=== PATIENT | male | born 1945 | race African-American/Black ===

== ENCOUNTER 2017-04-12 16:54 | Inpatient (IN) | payer MEDICARE ==
[~2017-04-12] VITALS: Ht 188 cm; Wt 155.5 kg
[2017-04-12] MEDS ORDERED: PROAIR HFA8.5 GM INH (17:47)
[2017-04-12] MEDS ORDERED: GLIPIZIDE10 MG PO (17:48)
[2017-04-12] MEDS ORDERED: VITAMIN D250000 UNIT PO (17:49)
[2017-04-12] MEDS ORDERED: ZOCOR40 MG PO (17:49)
[2017-04-12] MEDS ORDERED: MAG 6464 MG PO (17:50)
[2017-04-12] MEDS ORDERED: ISOSORBIDE MONO30 M1 PO (17:53)
[2017-04-12] MEDS ORDERED: AMBIEN10 MG PO ×2 (17:54→18:09)
[2017-04-12] MEDS ORDERED: ULTRAM50 MG PO (17:54)
[2017-04-12] MEDS ORDERED: NOVOLIN 70/30 110 ML SC ×2 (18:00)
--- NOTE | 2017-04-12 18:00 | NUR ---
PT RECEIVED TO ROOM FROM EMS. PT ABLE TO AMBULATE TO BED X2 ASSIST. PT IS ORIENTED X3. PT IS VERY LETHARGIC ONCE HE GOT TO BED. UNABLE TO PERFORM FULL HX OR ASSESSMENT DUE TO PT BEING SO LETHARGIC AND NOT ANSWERING QUESTIONS. PTS BS IS 237. ORDERS ARE IN, MED REC COMPELTED, PT ABLE TO ANSWER MINIMAL QUESTIONS. REQUESTING TO EAT. VSS EXCEPT FOR BP BEING SLIGHTLY HYPOTENSIVE AT 104/45 UNSURE FOR BASELINE. UPON ASSESSING PT CELL PHONE AT BEDSIDE WAS RINGING AND IT WAS A FAMILY FRIEND. HE STATES PT LIVES AT HOME ALONE AND CALLED HIS DAUGHTER NOT FEELING WELL AND SHE BROUGHT HIM TO [facility], I GAVE HIM THE HOSPITAL NUMBER AND SHE IS SUPPOSE TO CALL FOR AN ACCURATE HISTORY AND PTS BASELINE WHICH IS APPARENTLY NOT CONFUSION OR LETHARGY. WILL NOTIFY RENAL MAKE UP ARTIST OF PTS ARRIVAL AND LET THEM KNOW AND CONTINUE WITH ORDERS.
[2017-04-12] MEDS ORDERED: METOPROLOL TART50 MG PO (18:02)
[2017-04-12] MEDS ORDERED: ZYLOPRIM100 MG PO (18:02)
[2017-04-12] MEDS ORDERED: LASIX80 MG PO (18:03)
[2017-04-12] MEDS ORDERED: ZOCOR20 MG PO (18:03)
[2017-04-12] MEDS ORDERED: VASOTEC10 MG PO (18:07)
[2017-04-12] MEDS ORDERED: CIALIS5 MG PO (18:07)
[2017-04-12] MEDS ORDERED: JANUMET 50-5001 TAB PO (18:08)
[2017-04-12] MEDS ORDERED: NAPROXEN250 MG PO (18:08)
[2017-04-12 18:10] VITALS: BP 105/45; BMI 45.0
[2017-04-12] MEDS ORDERED: SOMA350 MG PO (18:10)
--- NOTE | 2017-04-12 18:40 | NUR ---
PAGED RENAL CADDY PER NURSING MESSAGE FOR FURTHER ORDERS. WILL AWAIT CALL BACK.
[2017-04-12 19:00] VITALS: BP 132/61
--- NOTE | 2017-04-12 19:00 | NUR ---
PTS RESPIRATIONS ARE STILL SHALLOW AND PT IS SOB. STILL VERY LETHARGIC. WILL GIVE REPORT ON PT CONDTION. STILL AWAITING CALL BACK FROM [facility].
[2017-04-12 19:01] LABS: BASOPHILS 0.2 % (0-2); EOSINOPHILS 1.8 % (0-7); HEMATOCRIT 41.2 % (42.0-54.0); IMMATURE GRANULOCYTES 0.3 % (0-5); LYMPHOCYTES 18.3 % (15-50); MCH 27.3 pg (26.0-34.0); MCHC 29.1 g/dL (31.0-37.0); MCV 93.8 fL (80.0-100.0); MEAN PLATELET VOLUME 9.7 fL (7.4-10.4); MONOCYTES 8.1 % (2-11); NEUTROPHILS 71.3 % (40-80); PLATELET COUNT 209 10x3/uL (130-400); RBC 4.39 10x6/uL (4.20-6.10); RDW 15.8 % (11.5-14.5); WBC 9.9 10x3/uL (4.8-10.8)
--- NOTE | 2017-04-12 19:45 | NUR ---
PT IN BED WITH EYES CLOSED AND CHEST RISING. PT FREQUENTLY YELLS AND MOANS LOUDLY WHILE AWAKE. COMPLAINS OF BEING COLD WITH BLANKETS PROVIDED AND AIR TEMP ADJUSTED. COMPLAINS OF BEING HUNGARY AND NOT EATEN ALL DAY. PT PROVIDED WITH SANDWICH. PT FALLING ASLEEP FREQUENTLY. NO CONCERNS MADE KNOWN. CALL LIGHT IN REACH.
[2017-04-12 19:56] LABS: CALC OSMOLALITY 309 mosm/kg (275-300); CALCIUM 7.7 mg/dL (8.5-10.1); CARBON DIOXIDE 37.6 mmol/L (21.0-32.0); CHLORIDE - SERUM 96 mmol/L (98-107); CKMB 4.5 U/L (0.0-3.6); CREATINE KINASE 390 UL (21-232); GLUCOSE 212 mg/dL (74-106); POTASSIUM - SERUM 4.1 mmol/L (3.5-5.1); PRO BNP 333 pg/mL (0-125); SODIUM 139 mmol/L (136-145); UREA NITROGEN 85 mg/dL (7-18); eGFR NON AFRICAN AMERICAN 12 mL/min (90-120)
[2017-04-12 19:58] LABS: TROPONIN-I 0.016 ng/mL (0.000-0.060)
[2017-04-12 20:39] LABS: APPEARANCE CLEAR (CLEAR); BILIRUBIN NEGATIVE (NEGATIVE); COLOR YELLOW (YELLOW); GLUCOSE NEGATIVE (NEGATIVE); KETONE NEGATIVE (NEGATIVE); NITRITE NEGATIVE (NEGATIVE); PROTEIN NEGATIVE (NEGATIVE); SPECIFIC GRAVITY 1.015 (1.005-1.020); UROBILINOGEN NORMAL (NORMAL)
[2017-04-12 20:46] LABS: CREATININE - URINE 118.6 mg/dL (30-125)
--- NOTE | 2017-04-12 23:30 | NUR ---
PT IN BED WITH EYES CLOSED AND CHEST RISING. CONTINUES TO MOAN LOUDLY AND STATES THAT HE IS COLD WITH ANOTHER BLANKET PROVIDED. NO OTHER CONCERNS NOTED. CALL LIGHT IN REACH.
[2017-04-13 01:09] LABS: CREATINE KINASE 409 UL (21-232); TROPONIN-I 0.018 ng/mL (0.000-0.060)
--- NOTE | 2017-04-13 04:55 | NUR ---
PT IN BED MOANING WITH NO CONCERNS NOTED. HOB ELEVATED. NO CONCERNS NOTED CALL LIGHT IN REACH.
[2017-04-13 06:36] LABS: BASOPHILS 0.1 % (0-2); EOSINOPHILS 1.7 % (0-7); HEMATOCRIT 38.3 % (42.0-54.0); HEMOGLOBIN 11.4 g/dL (13.5-17.5); IMMATURE GRANULOCYTES 0.2 % (0-5); LYMPHOCYTES 22.3 % (15-50); MCH 27.4 pg (26.0-34.0); MCHC 29.8 g/dL (31.0-37.0); MCV 92.1 fL (80.0-100.0); MEAN PLATELET VOLUME 9.3 fL (7.4-10.4); NEUTROPHILS 68.7 % (40-80); PLATELET COUNT 205 10x3/uL (130-400); RBC 4.16 10x6/uL (4.20-6.10); RDW 15.7 % (11.5-14.5); WBC 8.6 10x3/uL (4.8-10.8)
[2017-04-13 07:09] LABS: CALC OSMOLALITY 305 mosm/kg (275-300); CALCIUM 8.6 mg/dL (8.5-10.1); CARBON DIOXIDE 36.6 mmol/L (21.0-32.0); CHLORIDE - SERUM 96 mmol/L (98-107); CKMB 2.1 U/L (0.0-3.6); CREATINE KINASE 380 UL (21-232); CREATININE - SERUM 4.7 mg/dL (0.6-1.3); GLUCOSE 184 mg/dL (74-106); POTASSIUM - SERUM 4.5 mmol/L (3.5-5.1); SODIUM 137 mmol/L (136-145); UREA NITROGEN 88 mg/dL (7-18); eGFR NON AFRICAN AMERICAN 13 mL/min (90-120)
--- NOTE | 2017-04-13 07:15 | NUR ---
AM ROUNDS COMPLETED PT IS A&O TODAY AND INQUIRING ABOUT TAKING A SHOWER. SHIFT ASSESSMENT COMPLETED. PT HAS A R.FA PIV WITH DRSG CDI AND SWAB CAPS IN USE, FLUSHED AND ITS PATENT. WILL CHECK PTS ORDERS AND ASSIST HIM IN SHOWER AND BED CHANGE SHORTLY.
--- NOTE | 2017-04-13 09:47 | NUR ---
PT NOW FINISHED WITH SHOWER HE DID IT ALL HIMSELF BUT DID NEED ASSISTANCE GETTING DRESSED. TELEMETRY APPLIED AND PT RUNNING SINUS TACHY @111. PT BACK IN BED WITH NEW FRESH LINENS IN PLACE AND FRESH GOWN. PT VOICED THANKS AND IS RESTING QUIETLY WITH ICE WATER AT BEDSIDE AND WATCHING TV. NO CURRENT PAIN OR NEEDS AT THIS TIME. CL IN REACH, BED IN LOWEST, SIDE RAILS X2. WILL CPOC.
[2017-04-13 10:22] VITALS: BP 117/51
--- NOTE | 2017-04-13 10:22 | NUR ---
PTS ABGS RESULTED WITH CRITICAL HIGH CO2 OF 83 CALLED RESULTS TO [facility] RENAL ATTORNEY LAW CLERK AND REC'D ORDERS FOR STAT BIPAP AND CONSULT PULMONOLOGY. WILL CPOC.
--- NOTE | 2017-04-13 10:35 | NUR ---
PT NOW WEARING BIPAP AND TEACHING WAS PROVIDED. PT C/O HIS BLOOD SUGAR BEING LOW, CHECKED IT AND IT WAS 319. NO ACTION NEEDED, WILL RECHECK AND TREAT WITH SS ORDERED.
--- NOTE | 2017-04-13 11:01 | NUR ---
PTS TEMP RECORDED FEBRILE @101.3 RECHECKED FOR CONFIRMATION AND TEMP ACTUALLY 98.9. PT LEAVING FOR CT OF HEAD. WILL CTM.
[2017-04-13 11:06] VITALS: Ht 188 cm; Wt 155.5 kg
--- NOTE | 2017-04-13 11:30 | NUR ---
PT BACK FROM CT HAVING ECHO PERFORMED AT THIS TIME.
[2017-04-13 12:08] VITALS: BP 114/70
[2017-04-13 12:25] LABS: ALBUMIN 2.7 g/dL (3.4-5.0); BILIRUBIN - TOTAL 0.5 mg/dL (0.2-1.3); CALCIUM 7.8 mg/dL (8.5-10.1); CARBON DIOXIDE 36.5 mmol/L (21.0-32.0); POTASSIUM - SERUM 4.5 mmol/L (3.5-5.1)
[2017-04-13 12:34] LABS: THYROID STIMULATING HORMONE 1.68 uIU/mL (0.36-3.74)
--- NOTE | 2017-04-13 12:45 | NUR ---
BLOOD SUGAR 278. PT REC'D 6 UNITS OF SS INSULIN. PT RESTING QUIETLY IN BED WITH BIPAP IN PLACE. NO CURRENT NEEDS. WILL CPOC.
--- NOTE | 2017-04-13 13:27 | NUR ---
ADMISSION HISTORY JUST NOW COMPLETED R/T NOT BEING ENTERED ON ACTUAL ADMISSION, DID MY BEST HOWEVER PT UNABLE TO PROVIDE MOST ANSWERS AND NO FAMILY HERE OR ANSWERED ON TELEPHONE.
[2017-04-13 15:26] VITALS: BP 102/57
--- NOTE | 2017-04-13 19:38 | NUR ---
PT IN BED RESTING. EVEN UNLABORED RESPIRATIONS NOTED. BIPAP IN PLACE. WILL CONTINUE TO MONITOR.
[2017-04-13 20:00] VITALS: BP 124/64
[2017-04-14] VITALS: BP 93/50
[2017-04-14 04:00] VITALS: BP 124/105
--- NOTE | 2017-04-14 05:40 | NUR ---
LYING IN BED WITH CALL LIGHT IN REACH. WILL CONTINUE WITH PLAN OF CARE.
[2017-04-14 05:50] LABS: BASOPHILS 0.1 % (0-2); EOSINOPHILS 1.5 % (0-7); HEMATOCRIT 37.3 % (42.0-54.0); HEMOGLOBIN 11.1 g/dL (13.5-17.5); IMMATURE GRANULOCYTES 0.4 % (0-5); LYMPHOCYTES 25.8 % (15-50); MCH 27.6 pg (26.0-34.0); MCHC 29.8 g/dL (31.0-37.0); MCV 92.8 fL (80.0-100.0); MEAN PLATELET VOLUME 9.5 fL (7.4-10.4); MONOCYTES 7.9 % (2-11); NEUTROPHILS 64.3 % (40-80); PLATELET COUNT 230 10x3/uL (130-400); RBC 4.02 10x6/uL (4.20-6.10); RDW 15.7 % (11.5-14.5)
[2017-04-14 06:18] LABS: ANION GAP 9.6 mmol/L (8-16); CALCIUM 8.3 mg/dL (8.5-10.1); CARBON DIOXIDE 35.4 mmol/L (21.0-32.0); CREATININE - SERUM 5.5 mg/dL (0.6-1.3)
--- NOTE | 2017-04-14 07:45 | NUR ---
AM ROUNDS COMPLETED. INTRODUCED MYSELF TO PT PRIMARY RN FOR TODAYS SHIFT. RR NONLABORED, NO CURRENT NEEDS AT THIS TIME, WILL CHECK ORDERS AND CONTINUE WITH TODAYS PLAN OF CARE.
[2017-04-14 08:00] VITALS: BP 179/87
--- NOTE | 2017-04-14 10:11 | NUR ---
PT NOT WEARING BIPAP AND APAPRENTLY REFUSED ALL NIGHT. I EXPLAINED DISEASE PROCESS AND TALKED WITH PT AND TALKED HIM INTO WEARING IT AND NOW APPLIED IT. PT HAS NOT HAD VERY MUCH OUTPUT RECORDED AND RENAL CALLED AND ORDERED DUNN AND WILL GET IT PLACED SOON POSSIBLE. PT IS ORIENTED BUT ON/OFF ALERT AND LETHARGIC PT IS MOSTLY SLEEPY BUT WILL WAKE UP ABRUPTLY AND ASK TO EAT AND STATE HIS SUGAR IS LOW BUT EVERYTIME ITS CHECKED ITS HIGH. WILL CONTINUE TO MONITER AND WITH PLAN OF CARE.
--- NOTE | 2017-04-14 10:35 | CN ---
PATIENT NAME:ANNABELLA FONTENOT MEDICAL RECORD: [id number] : 49 LOCATION:. D.2140 ADMIT DATE: 04/12/17 ACCOUNT: [id number] CONSULTING PHYSICIAN: BELA CLEMENTS MD REFERRING PHYSICIAN: DEDRA PULIDO MD DATE OF CONSULTATION: 04/13/2017 CONSULT REQUESTING PHYSICIAN: Dr. Batista. REASON FOR CONSULTATION: Acute hypoxic hypercapnic respiratory failure. HISTORY OF PRESENT ILLNESS: Mr. Fontenot is a 71-year-old gentleman who has a history of COPD, obstructive sleep apnea. The patient was not breathing very well and not feeling well. The patient came into the ER, found out patient in pulmonary edema as well, he has csrrf-hx-lvglbth renal failure. This morning, a rapid response was called because the patient was dyspneic and ABG was done and his pH was 7.3 and the pCO2 was 82. The patient was put on BiPAP, now is feeling better. He denies any fever and chill. There are no night sweats. REVIEW OF SYSTEMS: As in history of present illness. PAST MEDICAL HISTORY: 1. Chronic kidney disease. 2. Obstructive sleep apnea. 3. Chronic obstructive pulmonary disease. 4. Current everyday smoker. 5. Coronary artery disease. 6. Diabetes mellitus type 2. 7. Hypertension. 8. History of possible TB in the past. 9. History of chronic backache. 10. History of peptic ulcer disease. 11. History of polypharmacy abuse. 12. History of gout. 13. Degenerative joint disease. PAST SURGICAL HISTORY: None significant. ALLERGIES: There is no known drug allergies. MEDICATIONS: Zample was reviewed. PERSONAL AND SOCIAL HISTORY: The patient is still everyday smoker, more than a half pack a day. He is a nondrinker. FAMILY HISTORY: Noncontributory. PHYSICAL EXAMINATION: GENERAL: Now, the patient is lying comfortably in bed. He is not in acute distress. VITAL SIGNS: The blood pressure is 102/57, pulse is 85, respirations 20, temperature 98.2, SPO2 is 96% on 1.5 liters nasal cannula. HEENT: Conjunctivae pink, sclerae nonicteric. NECK: Neck is supple, no JVD. CHEST: The chest excursion is minimal on both sides. There are bilateral CONSULT REPORT [id number] ANNABELLA FONTENOT crackles. No wheezing. HEART: Rate and rhythm regular, normal sound, no murmur. ABDOMEN: Abdomen is soft, bowel sounds present. No hepatosplenomegaly. RECTAL: Deferred. EXTREMITIES: No cyanosis, no clubbing. He has 2+ pedal edema. SKIN: The skin is warm, normal turgor. CENTRAL NERVOUS SYSTEM: The patient is awake and alert. There is no obvious cranial nerve abnormality. The gait was not tested. CHEST RADIOGRAPH: There are bilateral increased interstitial markings, infiltrates. LABORATORY DATA: CBC: WBC 8.6, hemoglobin 11.4, hematocrit 38.3, platelet count 205. Chemistry: Sodium 137, potassium 4.5, BUN is 88, creatinine is 5. ABG: The pH is 7.30, pCO2 is 82, pO2 is 50, bicarbonate 40.5. IMPRESSION: 1. Acute hypoxic hypercapnic respiratory failure. 2. Respiratory acidosis secondary to #1. 3. Pulmonary edema, most likely secondary to fluid overload with associated kidney failure. 4. Acute exacerbation of chronic obstructive pulmonary disease, most likely secondary to pulmonary edema. Doubt infectious cause. 5. Obstructive sleep apnea. The patient is noncompliant. 6. Lixkl-mi-oupjtbx renal failure. 7. Diabetes mellitus type 2. 8. Morbid obesity. RECOMMENDATION: 1. BiPAP at nighttime and during the day as required. 2. Supplemental oxygen. 3. Agree with the diuresis. 4. Start him with albuterol/ipratropium nebulizer. 5. Brovana, budesonide nebulizer. 6. Follow up labs and chest radiograph. Dr. Batista, thank you for involving me in the care of Mr. Fontenot. TRANSINT:[id number] Voice Confirmation ID: [id number] DOCUMENT ID: [id number] BELA CLEMENTS MD at 1035 CC: SERGEY BATISTA MD [id number] DICTATION DATE: 04/13/17 1603 MARKETING OPERATIONS INTERN: 04/13/17 1654 ADM IN [place] [id number] [place] [address]
--- NOTE | 2017-04-14 11:10 | NUR ---
16FR DUNN INSERTED USING STERILE TECHNIQUE. CLEAR YELLOW URINE 500ML IMMEDIATE RETURN. STAT LOCK SECURED TO R.INNER THIGH AND BAG DRAINING TO GRAVITY. PT HAS STRONG FOUL ODOR FROM BODY FOLDS BUT REFUSED BATH AND STATES "I HAD ONE THIS MORNING" WILL TRY TO ENCOURAGE AGAIN SHORTLY.
[2017-04-14 12:00] VITALS: BP 125/64
--- NOTE | 2017-04-14 12:34 | NUR ---
FSBS 257 PT REC'D 6 UNITS PER SS INSULIN. PT SITTING UP IN BEDSIDE CHAIR RESTING AND DENIES ANY FURTHER NEEDS AT THIS TIME. CL IN REACH. WILL CPOC.
--- NOTE | 2017-04-14 14:23 | NUR ---
CALLED [facility] IN [place], [place] FOR AN ACCURATE HX ON PT AND THEY DID NOT ANSWER. VOICEMAIL WAS LEFT. WILL CTM.
[2017-04-14 18:02] VITALS: BP 147/81
--- NOTE | 2017-04-14 18:44 | NUR ---
PT C/O DUNN HURTING AND SAYS HE WILL RIP IT OUT. PT WILL NOT USE CL AND CONSISTENTLY IS CLIMBING OOB AND HAS MANANGED TO PULL ON HIS CATHTER TUBING TO WHERE STAT LOCK IS NOT SECURING TUBING. EXPLAINED WHY IT WAS PAINFUL TO PT AND REINFORCED STAT LOCK AND SECURED TUBING. ASSISTED PT UP IN BED AND ENCOURAGED HIM TO CALL FOR ANY NEEDED ASSISTANCE OOB AND NOT TO GET UP ON HIS OWN HIS GAIT IS NOT STABLE AND HE TENDS TO PULL ON STUFF OR JERK IT TO MISPLACE. PT STILL VERY LETHARGIC ON/OFF AND CONSTANTLY MESSING WITH BIPAP AND HASNT WORN IT TODAY EXCEPT MAYBE 4 HOURS COMBINED. PT INSISTING ON BEING DISCHARGED EXPLAINED PTS DISEASE PROCESS AGAIN AND REMINDED HIM HOW IMPORTANT IT IS TO WEAR HIS BIPAP. PT VERBALIZED UNDERSTANDING AND ALLOWED ME TO PUT IT BACK ON WILL PASS ON TO NIGHTSHIFT AND HOPEFULLY PT WILL BE COMPLIANT. BUILT IN BED ALARM TURNED ON, BED IN LOWEST, SIDE RAILS X2. NO FURTHER NEEDS AT THIS TIME.
--- NOTE | 2017-04-14 19:33 | NUR ---
PT ASLEEP. BIPAP ON. RESPIRATIONS EVEN AND UNLABORED. PT SHIVERING. AROUSED TO VERBAL STIMULI. SAYS HE IS COLD. PUT A BLANKET ON PT. PT BED LOW AND CALL LIGHT IN REACH. NO S/S OF DISTRESS. WILL CPOC
[2017-04-14 20:00] VITALS: BP 136/69
[2017-04-15] VITALS: BP 148/67
--- NOTE | 2017-04-15 01:03 | NUR ---
PT FSBS 263 6 UNITS OF HUMALOG GIVEN IN ABD. PT SITTING ON SIDE OF BED AT THIS TIME. TOOK BIPAP OFF. NC 3L ON. PT ASKS FOR GRAMCRACKERS A SNACK WITH INSULIN. WILL GIVE PT THE SNACK AND PLACE BIPAP BACK ON WHEN LAYS BACK IN BED. PT DENIES ANY OTHER NEEDS. NO S/S OF DISTRESS. WILL CPOC
[2017-04-15 04:00] VITALS: BP 114/58
--- NOTE | 2017-04-15 05:15 | NUR ---
PT TOOK OFF BIPAP TO GET SOME WATER. PT DRANK A CUP OF WATER AND THAN LET ME PUT BIPAP BACK ON. PT HAS BEEN IN AGREEMENT OF KEEPING THE BIPAP ON. ALTHOUGH HE HAS TAKEN OFF THE BIPAP SEVERAL TIMES AND SET ON SIDE OF BED 15-20 MIN AT A TIME 2-3 TIMES. PT HAS PUT BIPAP BACK ON WITHOUT DISAGREEMENT. PT NOW C/O PAIN IN LEG. WILL CHECK FOR PRN PAIN MED AVALIBLE. PT DENIES ANY OTHER NEEDS. NO S/S OF DISTRESS. WILL CPOC
[2017-04-15 06:29] LABS: BASOPHILS 0.1 % (0-2); EOSINOPHILS 1.7 % (0-7); HEMATOCRIT 37.8 % (42.0-54.0); HEMOGLOBIN 11.1 g/dL (13.5-17.5); IMMATURE GRANULOCYTES 0.4 % (0-5); LYMPHOCYTES 19.7 % (15-50); MCH 27.1 pg (26.0-34.0); MCHC 29.4 g/dL (31.0-37.0); MCV 92.4 fL (80.0-100.0); MEAN PLATELET VOLUME 9.2 fL (7.4-10.4); NEUTROPHILS 67.1 % (40-80); PLATELET COUNT 218 10x3/uL (130-400); RBC 4.09 10x6/uL (4.20-6.10); RDW 15.6 % (11.5-14.5); WBC 8.1 10x3/uL (4.8-10.8)
[2017-04-15 06:38] LABS: ANION GAP 10.9 mmol/L (8-16); CALCIUM 8.2 mg/dL (8.5-10.1); CARBON DIOXIDE 35.2 mmol/L (21.0-32.0); CREATININE - SERUM 4.6 mg/dL (0.6-1.3); POTASSIUM - SERUM 4.1 mmol/L (3.5-5.1)
--- NOTE | 2017-04-15 07:15 | NUR ---
RECIEVED REPORT ON PATIENT, PATIENT IS ALERT AT THIS TIME. PATIENT IS ON BIPAP WITH NAD NOTED AT THIS TIME. PATIENT IS SR ON MONITOR WITH A RATE OF 105. PATIENT HAS A R FA IV THAT IS SL AT THIS TIME. PATIENT C/O PAIN IN LEGS 6/10 AT THIS TIME, NOT TIME FOR PAIN MEDICATION. WILL TALK WITH DENIES ANY OTHER NEEDS. WILL CONT TO MONITOR. CPOC
[2017-04-15 08:16] VITALS: BP 165/84
--- NOTE | 2017-04-15 09:30 | NUR ---
MORNING MEDICATIONS GIVEN, NO ISSUES. PATIENT DENIES ANY NEEDS. BED LOW AND LOCKED. CPOC
[2017-04-15 11:23] VITALS: BP 127/67
--- NOTE | 2017-04-15 11:45 | NUR ---
PATIENT SITTING ON SIDE OF BED EATING LUNCH, DENIES ANY NEEDS AT THIS TIME. CPOC
--- NOTE | 2017-04-15 12:30 | NUR ---
TRAMADOL GIVEN FOR PAIN IN RIGHT LEG. DENIES ANY OTHER NEEDS AT THIS TIME. CPOC
--- NOTE | 2017-04-15 14:31 | NUR ---
PATIENT SITTING ON SIDE OF BED, STATES STILL HAVING PAIN IN RIGHT LEG. NOT DUE FOR PAIN MEDICATION, LEGS ELEVATED. WILL GIVE WHEN DUE. CPOC
--- NOTE | 2017-04-15 14:52 | NUR ---
WENT IN TO ASK PATIENT IF HE WOULD LIKE SOME TYLENOL FOR HIS PAIN AND PATIENT IS RESTING, WILL LET PATIENT REST. CPOC
[2017-04-15 15:46] VITALS: BP 124/80
--- NOTE | 2017-04-15 16:15 | NUR ---
PATIENT RESTING, AROUSES TO VOICE, DENIES ANY NEEDS. FAMILY AT BEDSIDE. CPOC
--- NOTE | 2017-04-15 18:06 | NUR ---
FSBS 333, 8 UNITS OF HUMALOG GIVEN. CPOC
--- NOTE | 2017-04-15 18:09 | NUR ---
DR FERRARI NOTIFIED OF CONSULT. CPOC
--- NOTE | 2017-04-15 18:38 | NUR ---
PATIENT RESTING AT THIS TIME, NAD NOTED. AROUSES TO VOICE, DENIES ANY NEEDS. CPOC
--- NOTE | 2017-04-15 19:20 | NUR ---
PT RESTING IN BED. BIPAP ON. RESPIRATIONS EVEN AND UNLABORED. PT DENIES ANY NEEDS. NO S/S OF DISTRESS. BED LOW AND CALL LIGHT IN REACH. WILL CPOC
[2017-04-15 20:00] VITALS: BP 148/78
--- NOTE | 2017-04-15 21:45 | NUR ---
PT IS FSBS Q6. HAS AN ORDER FOR HUMOLIG AT 0000. WILL GIVE NOVOLIN AT THAT TIME. PT ON BIPAP. RESPIRATIONS EVEN AND UNLABORED. SITTING UP TO TAKE MEDS. NO NEEDS. NO S/S OF DISTRESS. WILL CPOC
--- NOTE | 2017-04-15 23:37 | NUR ---
PT FSBS WAS 258. NOVOLIN WAS GIVEN ORDERED. HUMOLOG GIVEN 6 UNITS PER S/S. PT UP ON SOB TO EAT A SNACK. NC ON. PT UP FOR 10 MINS THAN ASSISTED PT BACK INTO BED. PUT BIPAP BACK ON. PT DENIES ANY NEEDS. NO S/S OF DISTRESS. BED LOW AND CALL LIGHT IN REACH. WILL CPOC
[2017-04-16] VITALS: BP 118/867
--- NOTE | 2017-04-16 03:20 | NUR ---
PT ASLEEP. RESP. EVEN AND UNLABORED. BIPAP ON STATES RR ARE 22. PT HAS NO S/S OF DISTRESS. CALL LIGHT IN REACH. WILL CPOC
[2017-04-16 05:14] LABS: BASOPHILS 0.1 % (0-2); EOSINOPHILS 2.1 % (0-7); IMMATURE GRANULOCYTES 0.1 % (0-5); LYMPHOCYTES 24.4 % (15-50); MCHC 29.7 g/dL (31.0-37.0); MCV 90.7 fL (80.0-100.0); MEAN PLATELET VOLUME 9.5 fL (7.4-10.4); MONOCYTES 9.4 % (2-11); NEUTROPHILS 63.9 % (40-80); PLATELET COUNT 228 10x3/uL (130-400); RBC 4.08 10x6/uL (4.20-6.10); RDW 15.4 % (11.5-14.5); WBC 7.5 10x3/uL (4.8-10.8)
[2017-04-16 05:38] LABS: ANION GAP 10.1 mmol/L (8-16); CALCIUM 8.4 mg/dL (8.5-10.1); CARBON DIOXIDE 38.4 mmol/L (21.0-32.0); CREATININE - SERUM 4.2 mg/dL (0.6-1.3); MAGNESIUM - SERUM 2.3 mg/dL (1.8-2.4); POTASSIUM - SERUM 3.5 mmol/L (3.5-5.1)
--- NOTE | 2017-04-16 06:45 | NUR ---
PT SITTING ON SIDE OF BED EATING SNACK HAS ON 2L OF NC AT THIS TIME. WILL PUT BIPAP BACK ON WHEN LAYS DOWN. PT DENIES ANY NEEDS. NO S/S OF DISTRESS. WILL CPOC
--- NOTE | 2017-04-16 07:30 | NUR ---
RECEIVED REPORT. ASSUMED CARE OF PATIENT. PATIENT SITTING TO SIDE OF BED. CALL LIGHT WITHIN REACH. DUNN CATHETER PATENT. BLOOD TINGED PINK URINE NOTED TO DRAIN BAG. RESP EVEN AND UNLABORED. DENIES NEEDS. NO DISTRESS.
[2017-04-16 08:00] VITALS: BP 146/94
--- NOTE | 2017-04-16 09:37 | NUR ---
MEDICATED FOR PAIN AT THIS TIME. NO DISTRESS.
--- NOTE | 2017-04-16 11:44 | NUR ---
FSBS 274. 6 UNITS HUMALOG ADMINISTERED PER SLIDING SCALE AT THIS TIME. NO DISTRESS.
[2017-04-16 12:00] VITALS: BP 133/73
[2017-04-16 16:00] VITALS: BP 123/61
--- NOTE | 2017-04-16 17:13 | NUR ---
MEDICATED FOR PAIN AT THIS TIME. NO DISTRESS.
--- NOTE | 2017-04-16 18:04 | NUR ---
FSBS 292. 6 UNITS HUMALOG ADMINISTERED PER SLIDING SCALE. NO DISTRESS.
--- NOTE | 2017-04-16 19:31 | NUR ---
RECEIVED REPORT, WILL ASSUME CARE OF PT, SITTING ON SIDE OF BED, ASKING FOR TV CHANNEL TO BE CHANGE TO 9, DENIES ANY OTHER NEEDS, CALL LIGHT IN REACH, WILL CONTINUE PLAN OF CARE
[2017-04-16 20:00] VITALS: BP 136/76
--- NOTE | 2017-04-16 21:10 | NUR ---
[id number] UNITS ALIYAH
--- NOTE | 2017-04-16 21:16 | NUR ---
PT PLACED ON BI PAP
[2017-04-17] VITALS: BP 129/70
[2017-04-17 04:00] VITALS: BP 122/76
[2017-04-17 06:15] LABS: BASOPHILS 0.3 % (0-2); EOSINOPHILS 2.2 % (0-7); IMMATURE GRANULOCYTES 0.3 % (0-5); LYMPHOCYTES 28.3 % (15-50); MCH 26.8 pg (26.0-34.0); MCHC 29.7 g/dL (31.0-37.0); MEAN PLATELET VOLUME 9.4 fL (7.4-10.4); MONOCYTES 10.8 % (2-11); NEUTROPHILS 58.1 % (40-80); PLATELET COUNT 226 10x3/uL (130-400); RBC 4.11 10x6/uL (4.20-6.10); RDW 15.3 % (11.5-14.5); WBC 7.8 10x3/uL (4.8-10.8)
[2017-04-17 06:28] LABS: ANION GAP 11.2 mmol/L (8-16); CALCIUM 8.4 mg/dL (8.5-10.1); CARBON DIOXIDE 36.4 mmol/L (21.0-32.0); POTASSIUM - SERUM 3.6 mmol/L (3.5-5.1)
--- NOTE | 2017-04-17 07:50 | NUR ---
ASSESSMENT DONE. DENIES NEEDS.
[2017-04-17 08:00] VITALS: BP 133/83
--- NOTE | 2017-04-17 10:01 | NUR ---
RESTS IN BED WITH CALL LIGHT IN REACH. NO NEEDS VOICED. DUNN INTACT. WILL CONT. PLAN OF CARE.
[2017-04-17 12:00] VITALS: BP 122/71
--- NOTE | 2017-04-17 13:58 | NUR ---
Nutrition follow-up: Diet: Renal ADA PO intake 100% of meals Labs reviewed +BM Wt: 341# PO intake good at this time. RDN following.
[2017-04-17 16:00] VITALS: BP 126/68
--- NOTE | 2017-04-17 16:40 | NUR ---
WITHOUT CHANGES OR DISTRESS NOTED AT THIS TIME. DENIES NEEDS.
--- NOTE | 2017-04-17 19:46 | NUR ---
ASSESSMENT COMPLETE, A&O, RESPERATIONS EVEN ON O2 AT 2 LITER VIA NC. IV TO RIGHT FOOREARM SL, SITE CLEAN AND DRY. DUNN DRAINING TO GRAVITY, BED LOW, CL IN REACH.
--- NOTE | 2017-04-17 21:43 | NUR ---
HS MEDS GIVEN WITH FRESH ICE WATER. BS 330, COVERED PER S/S. ULTRAM 1 TAB GIVEN FOR C/O PAIN. RATES PAIN AT A 5 ON PAIN SCALE.
[2017-04-17 22:18] VITALS: BP 157/74
--- NOTE | 2017-04-17 23:02 | NUR ---
PLASTIC BOAT BUFFER AT BED SIDE, PT UP IN SHOWER, LINEN CHANGE COMPLETE.
[2017-04-18 02:50] VITALS: BP 122/78
--- NOTE | 2017-04-18 03:36 | NUR ---
RESTING WITH EYES CLOSED, RESPERATIONS EVEN, NO S/S DISTRESS NOTED.
[2017-04-18 05:35] VITALS: BP 121/73
[2017-04-18 05:37] LABS: BASOPHILS 0.1 % (0-2); EOSINOPHILS 2.5 % (0-7); HEMATOCRIT 36.3 % (42.0-54.0); HEMOGLOBIN 11.1 g/dL (13.5-17.5); IMMATURE GRANULOCYTES 0.3 % (0-5); LYMPHOCYTES 17.3 % (15-50); MCH 27.1 pg (26.0-34.0); MCHC 30.6 g/dL (31.0-37.0); MCV 88.8 fL (80.0-100.0); MEAN PLATELET VOLUME 9.5 fL (7.4-10.4); MONOCYTES 11.9 % (2-11); NEUTROPHILS 67.9 % (40-80); PLATELET COUNT 214 10x3/uL (130-400); RBC 4.09 10x6/uL (4.20-6.10); RDW 15.1 % (11.5-14.5); WBC 7.3 10x3/uL (4.8-10.8)
[2017-04-18 05:55] LABS: CALCIUM 8.9 mg/dL (8.5-10.1); CARBON DIOXIDE 37.4 mmol/L (21.0-32.0); CREATININE - SERUM 3.6 mg/dL (0.6-1.3); MAGNESIUM - SERUM 1.9 mg/dL (1.8-2.4); PHOSPHOROUS 4.5 mg/dL (2.5-4.9); POTASSIUM - SERUM 3.4 mmol/L (3.5-5.1)
--- NOTE | 2017-04-18 08:12 | NUR ---
AM ROUNDS - PT IN BED AND APPEARS TO BE SLEEPING WITH EQUALA ND NON LABORED BREATHING AT THIS TIME. PT DOES HAVE BIPAP ON. MONITOR SHOWING SR, HR 97. IV TO RIGTH FA, SL. BED AT LOWEST POSITION. CALL CHRISTIANSEN IN USE/REACH. SIDE RAILS UP X2. WILL CONTINUE TO MONITOR
[2017-04-18 08:32] VITALS: BP 153/88
[2017-04-18 10:19] LABS: HEPATITIS C ANTIBODY <0.1 (0.0-0.9)
[2017-04-18 12:15] LABS: SPE - A/G RATIO 0.9 (0.7-1.7); SPE - ALBUMIN 2.9 g/dL (2.9-4.4); SPE - ALPHA-1 GLOBULIN 0.2 g/dL (0.0-0.4); SPE - ALPHA-2 GLOBULIN 0.8 g/dL (0.4-1.0); SPE - GAMMA GLOBULIN 1.1 g/dL (0.4-1.8); SPE - M-SPIKE 0.1 g/dL (Not Observed)
[2017-04-18 12:34] VITALS: BP 133/68
[2017-04-18 16:31] VITALS: BP 155/86
--- NOTE | 2017-04-18 17:50 | NUR ---
PT IN BED AND NO NEEDS AT THIS TIME. WILL CONTINUE TO MONITOR
[2017-04-18 20:00] VITALS: BP 138/81
[2017-04-19 04:00] VITALS: BP 113/74
--- NOTE | 2017-04-19 05:28 | NUR ---
PT AWAKE, ALERT, HAS BEEN ON HIS CALL LIGHT MULTIPLE TIMES THIS SHIFT, ASKING TO BE D/C'D PER GEOSCIENCES FACULTY MEMBER. NO NEEDS AT THIS TIME. CONTINUE TO MONITOR CLOSELY.
[2017-04-19 06:15] LABS: BASOPHILS 0.1 % (0-2); EOSINOPHILS 2.6 % (0-7); HEMATOCRIT 36.7 % (42.0-54.0); HEMOGLOBIN 11.4 g/dL (13.5-17.5); IMMATURE GRANULOCYTES 0.3 % (0-5); LYMPHOCYTES 19.4 % (15-50); MCH 27.6 pg (26.0-34.0); MCHC 31.1 g/dL (31.0-37.0); MCV 88.9 fL (80.0-100.0); MEAN PLATELET VOLUME 9.7 fL (7.4-10.4); MONOCYTES 8.7 % (2-11); NEUTROPHILS 68.9 % (40-80); PLATELET COUNT 244 10x3/uL (130-400); RBC 4.13 10x6/uL (4.20-6.10); RDW 15.1 % (11.5-14.5); WBC 7.7 10x3/uL (4.8-10.8)
[2017-04-19 06:36] LABS: ANION GAP 7.9 mmol/L (8-16); CALCIUM 9.2 mg/dL (8.5-10.1); CARBON DIOXIDE 36.7 mmol/L (21.0-32.0); CREATININE - SERUM 3.3 mg/dL (0.6-1.3); POTASSIUM - SERUM 3.6 mmol/L (3.5-5.1)
[2017-04-19 06:38] LABS: PHOSPHOROUS 3.2 mg/dL (2.5-4.9)
[2017-04-19 08:00] VITALS: BP 130/67
--- NOTE | 2017-04-19 08:34 | NUR ---
AM ROUNDS - PT IS IN BED AND APPEARS TO BE SLEEPING AT THIS TIME. MONITOR SHOWING ST, HR 140. DUNN DRAINING YELLOW IN COLOR. 2L O2 VIA NC. IV TO RIGHT FA, SL. BED AT LOWEST POSITION. CALL CHRISTIANSEN IN USE/REACH. SIDE RAILS UP X2. WILL CONTINUE TO MONITOR
--- NOTE | 2017-04-19 09:15 | NUR ---
ANSWERED EMERGENCY CALL LIGHT IN ROOM. WAS SITTING ON TOILET. ASKED FOR HELP CLEANING UP AFTER BM. CLEANED RECTAL/BUTTOCKS WITH SOAP AND WARM WATER. SOFT BROWN STOOL NOTED. DUNN CATHETER PRESENT WITH BLOOD TINGED URINE NOTED. DESIRES TO SIT IN CHAIR. AMBULATED TO CHAIR. ELEVATED LOWER EXTREMETIES ON PILLOWS, UNABLE TO ELEVATED ON SECONDARY CHAIR. O2 CANNULA REPLACED IN NARES, CALL LIGHT PLACED IN REACH. INSTRUCTED TO CALL FOR ASSISTANCE WHEN READY TO GET BACK IN BED. VERBALIZED UNDERSTANDING. CLEAN LINENS PLACED ON BED. PRIMARY NURSE LEONIDAS Zaragoza RN, NOTIFIED OF ACTIONS FYI.
--- NOTE | 2017-04-19 10:12 | NUR ---
REQUESTED ASSISTANCE BACK TO BED. ITEMS GIVEN FOR BEDSIDE BATH. PT WASHED FACE, FRONT AND GROIN AREA. BACK WASHED AND LOTION APPLIED. ITEMS GIVEN FOR ORAL CARE. NEW STATLOCK APPLIED TO ATTACH DUNN TO LEG. TOLERATED WELL. RETURNED TO BED, HIGHFOWLERS POSITION, NASAL CANNULA IN PLACE AND FLOW SET AT 2 L. SIDERAILS UP X 2. CALL LIGHT IN REACH. FRESH WATER GIVEN. SAYS HE WANTS TO GO HOME. WANTS TO TALK TO DAUGHTER AND ASKED ABOUT "THOSE PAPERS I CAN SIGN TO GO HOME". INFORMED PRIMARY RN, LEONIDAS Zaragoza OF ABOVE INFORMATION. Ashlyn CHAVIRA, [facility] AUTOMOTIVE SERVICE TECHNICIAN.
--- NOTE | 2017-04-19 10:59 | NUR ---
WALK TEST: PT HAS A DUNN AND UNABLE TO WALK AT THIS TIME. AT REST ON ROOM AIR PT HAD A ABG DONE AND PAO2 WAS 48 WITH SAT AT 85%.
[2017-04-19] MEDS ORDERED: HUMULIN 70100 UNIT/1 SC (11:24)
[2017-04-19] MEDS ORDERED: BUMEX2 MG PO (11:27)
[2017-04-19 11:51] VITALS: BP 147/93
--- NOTE | 2017-04-19 12:01 | NUR ---
D/C DUNN. TOOK OUT 9CC FLUID FROM DUNN BULB. TOOK DUNN OUT. PT STATES HE HAS TO URINATE RIGHT AFTER D/C OF DUNN. INSTRUCTED PT TO USE THE URINAL AND SAVE IT SO WE CAN MONITOR AMOUNT OF OUTPUT. URINE IN DUNN BAG WAS DARK IN COLOR. 200CC IN BAG. WILL CONTINUE TO MONITOR
--- NOTE | 2017-04-19 16:23 | NUR ---
Patient Name: RAMONA LAMB Admission Status: Urgent Accout number: [id number] Admission Date: 04-14-2017 : 06-18-1964 Admission Diagnosis:PNEUMONIA, UNSPECIFIED ORGANISM Attending: NEGAR TORRES Current LOS: 5 Anticipated DC Date: 04-19-2017 Planned Disposition: Home Primary Insurance: [facility] Discharge Planning Comments: * Is the patient Alert and Oriented? Yes 0 * How many steps to enter\exit or inside your home? ELEVATOR 0 * PCP DR. HUDSON 0 * Pharmacy [facility] ON [address] 0 * Preadmission Environment Home with Family 0 * ADLs Independent 0 * Equipment CPAP 0 * Other Equipment [facility] - MEDICAL EQUIPMENT PROVIDER 0 * List name and contact numbers for known caregivers / representatives who currently or will assist patient after discharge: WES GUILLORY, AUNT, 0 * Community resources currently utilized None 0 * Please name any agencies selected above. NONE 0 * Additional services required to return to the preadmission environment? No 0 * Can the patient safely return to the preadmission environment? Yes 0 * Has this patient been hospitalized within the prior 30 days at any hospital? No 0 CM RECEIVED ORDER FOR OXYGEN TESTING AND NEBULIZER. CM MET WITH PT IN ROOM TO DISCUSS DISCHARGE PLANNING AND NEEDS. PT REPORTS LIVING AT HOME INDEPENDENTLY WITH HER BOYFRIEND. PT HAS CPAP FROM [facility]. PT HAS NO OUTSIDE SERVICES ASSISTING IN THE HOME. PT REPORTS CM DISCUSSED AVAILABILITY OF HOME HEALTH, REHAB SERVICES AND MEDICAL EQUIPMENT. PT DENIES DISCHARGE NEEDS OTHER THAN A NEBULIZER. PT WANTS TO PICK IT UP FROM [facility]. PT REPORTS HER STEP SON IS HERE TO TAKE SHE AND HER BOYFRIEND HOME TODAY. IMPORTANT MESSAGE FROM MEDICARE PROVIDED AND EXPLAINED. CM CALLED [facility], SPOKE TO AIXA WHO WILL PROCESS ORDER FOR PATIENT SAWMILL WORKER TODAY. CM FAXED REFERRAL TO [facility] AT [phone]. Rn Surgical: Miguel Patton
--- NOTE | 2017-04-19 17:22 | NUR ---
D/C - IV TO RIGHT FA D/C, CATH TIP INTACT. 2X2 DRESSING APPLIED AND SECURED WITH TAPE. PT TOLERATED WELL. PT WAS IN A KRAUS TO LEAVE AND REFUSSED HIS FLU SHOT. MONITOR D/C AND RETURNED TO LUGGAGE REPAIRER. PT WAS INSTRUCTED THAT HIS HOME O2 WAS NOT AT HOME AND HIS EQUIPMENT WOULD NOT BE AT HIS HOME FOR 2 DAYS. PT INSISTED THAT HE GO HOME. [employer] [facility] WAS HERE TO ARC AND GAS WELDER PT. PT LEFT FLOOR VIA WHEELCHAIR WITH OUTPATIENT PSYCHIATRIST. WILL D/C
--- NOTE | 2017-04-20 13:47 | NUR ---
Patient Name: ANNABELLA FONTENOT Encounter No: [id number] : 1945 Primary Insurance: MEDICARE A & B Anticipated DC Date: 04-19-2017 Planned Disposition: Home with Home Health External Planned Provider: [facility] DCP follow-up note: JAY RECEIVED CALL FROM ARP[facility] OF [facility] WHO REPORTS THAT SHE WILL NEED FURTHER CLARIFICATION AND DOCUMENTATION TO JUSTIFY THE TRILOGY MACHINE. ARPAN WILL CONTACT DR. CLEMENTS AT HIS OFFICE FOR DOCUMENTATION. ARPAN REPORTS SHE NEVER RECEIVED THE SECOND FAX LAST EVENING AND NEEDS ROOM AIR SATS TO COMPLETE THE OXYGEN ORDER. JAY REFAXED OXYGEN BLOOD GASES TO [facility] AT [phone]. [facility] REPORTED THAT THEY WILL ATTEMPT TO CONTACT PT TODAY TO ARRANGE OXYGEN AND NEBULIZER FOR HOME DELIVERY THIS AFTERNOON. Miguel Patton, CASE MANGEMENT
--- NOTE | 2017-04-28 14:14 | EC ---
PATIENT:ANNABELLA FONTENOT DATE OF SERVICE: 04/12/17 SEX: M MEDICAL RECORD: [id number] DATE OF : [birth year] LOCATION:D.M2 D.214 AGE OF PATIENT: 71 ADMISSION DATE: 04/12/17 REFERRING PHYSICIAN: INTERPRETING PHYSICIAN: LYUDMILA CHIANG MD ECHOCARDIOGRAM REPORT ECHO CHARGES 4 ECHO COMPLETE CLINICAL DIAGNOSIS: CHF ECHOCARDIOGRAPHIC MEASUREMENTS (adult normal given) AC root (d.<3.7cm) 3.2 cm LV Septum d (<1.2 cm> 1.8 cm Valve Excursion 1.4 cm LV Septum (systole) 2.0 cm Left Atria (s.<4.0cm> 3.9 cm LVPW d(<1.2cm) 1.6 cm RV (d.<2.3cm) 4.0 cm LVPW (sytole) 2.0 cm LV diastole(<5.6CM) 3.4 cm MV E-F(>70mm/sec) cm LV systole 1.8 cm LVOT Diameter 1.8 cm MV exc.(>10mm) cm Est.ejection fraction (50-75%) % Pericardial Effusion N DOPPLER: LVIT cm/sec A 76.0 cm/sec E 86.0 cm/sec LA cm/sec RVSP 22 mmHg LVOT 166 cm/sec AOP1/2T m/s Asc. Ao 213 cm/sec RVOT 102 cm/sec RA cm/sec PA 213 cm/sec AV Gradient Peak 18.14mmHg AV Mean 12.31mmHg AV Area 1.7 cm MV Gradient Peak 3.95 mmHg MV Mean 2.39 mmHg MV Area cm COMMENTS: Fitness Instructor: Cecelia ERICKSON Solidworks Drafter: 1 Dr. Chiang TAPE# PACS DATE OF SERVICE: 04/13/2017 Echocardiogram FINDINGS: 1. Left ventricular chamber size is within normal limits. Left ventricular systolic function is normal. Overall ejection fraction estimated at 60%. 2. Left atrium, right atrium, and right ventricle chamber sizes are within normal limits. 3. 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 Valve area calculates 1.7 cm-squared, has a gradient 18mm across the valve. The remaining valvular structures have normal structure and motion. 4. Doppler interrogation elsewise reveals only trace tricuspid regurgitation. No other valvular insufficiency or stenosis. Pulmonary systolic pressure is estimated normal at 22 mmHg. 5. No evidence of pericardial effusion or left ventricular thrombus. TRANSINT:[id number] Voice Confirmation ID: [id number] DOCUMENT ID: [id number] LYUDMILA CHIANG MD at 1414 CC: [id number] DICTATION DATE: 04/13/17 1509 CONTINUOUS DRYOUT OPERATOR: 04/13/17 1529 DIS IN 04/19/17 [id number] [place] [address]
== END 2017-04-19 17:27 | disposition home or self-care (01) | DRG 682 ==
LOC: D.MS 16:54 → D.M2 17:46
PROVIDERS: Internal Medicine Nephrology; Internal Medicine Pulmonary Disease; ADMIT Internal Medicine Nephrology
PROC: 5A09357 Assistance with Respiratory Ventilation, Less than 24 Consecutive Hours, Continuous Positive Airway Pressure (ICD-10-PCS; principal; 2017-04-13)
DX: N17.9 Acute kidney failure, unspecified (principal); J96.01 Acute respiratory failure with hypoxia; J96.02 Acute respiratory failure with hypercapnia; I50.21 Acute systolic (congestive) heart failure; J44.1 Chronic obstructive pulmonary disease with (acute) exacerbation; Z68.42 Body mass index [BMI] 45.0-49.9, adult; I13.0 Hypertensive heart and chronic kidney disease with heart failure and stage 1 through stage 4 chronic kidney disease, or unspecified chronic kidney disease; E11.22 Type 2 diabetes mellitus with diabetic chronic kidney disease; N18.4 Chronic kidney disease, stage 4 (severe); G47.33 Obstructive sleep apnea (adult) (pediatric); I25.10 Atherosclerotic heart disease of native coronary artery without angina pectoris; E66.01 Morbid (severe) obesity due to excess calories; E86.1 Hypovolemia; N32.9 Bladder disorder, unspecified; F03.90 Unspecified dementia, unspecified severity, without behavioral disturbance, psychotic disturbance, mood disturbance, and anxiety; Z86.73 Personal history of transient ischemic attack (TIA), and cerebral infarction without residual deficits; Z72.0 Tobacco use

== ENCOUNTER 2018-10-01 17:36 | Inpatient (IN) | payer MEDICARE ==
[~2018-10-01] VITALS: Ht 188 cm; Wt 138.4 kg
[~2018-10-01 17:36] MED LIST: AMBIEN10 MG PO; BUMEX2 MG PO; CIALIS5 MG PO; GLIPIZIDE10 MG PO; HUMULIN 70100 UNIT/1 SC; ISOSORBIDE MONO30 M1 PO; JANUMET 50-5001 TAB PO; LASIX80 MG PO; MAG 6464 MG PO; METOPROLOL TART50 MG PO; NAPROXEN250 MG PO; NOVOLIN 70/30 110 ML SC; PROAIR HFA8.5 GM INH; SOMA350 MG PO; ULTRAM50 MG PO; VASOTEC10 MG PO; VITAMIN D250000 UNIT PO; ZOCOR20 MG PO; ZOCOR40 MG PO; ZYLOPRIM100 MG PO
[2018-10-01] MEDS ORDERED: NAC600 MG (18:00)
[2018-10-01] MEDS ORDERED: ASPIRIN81 MG PO (18:01)
[2018-10-01] MEDS ORDERED: ZYLOPRIM100 MG PO (18:01)
[2018-10-01] MEDS ORDERED: LASIX80 MG PO (18:01)
[2018-10-01] MEDS ORDERED: METOLAZONE2.5 MG PO (18:02)
[2018-10-01] MEDS ORDERED: METOPROLOL TART50 MG PO (18:02)
[2018-10-01] MEDS ORDERED: MAG 6464 MG PO (18:02)
[2018-10-01] MEDS ORDERED: HYDROCODON-ACE1 EAC7 PO (18:03)
[2018-10-01] MEDS ORDERED: NOVOLOG100 UNIT/1 SC (18:03)
[2018-10-01] MEDS ORDERED: K-TAB10 MEQ PO (18:04)
[2018-10-01] MEDS ORDERED: XARELTO10 MG PO (18:04)
[2018-10-01] MEDS ORDERED: TRADJENTA5 MG PO (18:05)
[2018-10-01] MEDS ORDERED: AMBIEN10 MG PO (18:05)
[2018-10-01] MEDS ORDERED: CRESTOR40 MG PO (18:05)
--- NOTE | 2018-10-01 19:30 | NUR ---
PT PLACED ON BIPAP, RT AT PT BEDSIDE.
[2018-10-01 19:33] LABS: BASOPHILS 0.3 % (0-2); EOSINOPHILS 0.9 % (0-7); HEMATOCRIT 37.4 % (42.0-54.0); HEMOGLOBIN 11.4 g/dL (13.5-17.5); IMMATURE GRANULOCYTES 0.3 % (0-5); MCH 27.9 pg (26.0-34.0); MCHC 30.5 g/dL (31.0-37.0); MCV 91.4 fL (80.0-100.0); MEAN PLATELET VOLUME 9.2 fL (7.4-10.4); MONOCYTES 11.5 % (2-11); RBC 4.09 10x6/uL (4.20-6.10); RDW 15.7 % (11.5-14.5); WBC 6.7 10x3/uL (4.8-10.8)
[2018-10-01 19:35] LABS: PLATELET COUNT 179 10x3/uL (130-400)
[2018-10-01 19:43] LABS: ANION GAP 10.7 mmol/L (8-16); CARBON DIOXIDE 30.6 mmol/L (21.0-32.0); MAGNESIUM - SERUM 2.5 mg/dL (1.8-2.4); POTASSIUM - SERUM 5.3 mmol/L (3.5-5.1)
--- NOTE | 2018-10-01 19:45 | NUR ---
PT ASSISTED TO BEDSIDE COMMODE.
--- NOTE | 2018-10-01 20:10 | NUR ---
PT PLACED BACK IN BED.
[2018-10-01 20:30] VITALS: BP 129/79
--- NOTE | 2018-10-01 21:15 | NUR ---
PT SLEEPING ON BED, LIGHTS LOW. NO S/S OF ACUTE DISTRESS NOTED. BIPAP IN PLACE.
[2018-10-01 21:30] VITALS: BP 135/84
[2018-10-01 23:00] VITALS: BP 152/97
[2018-10-01 23:10] VITALS: BP 152/97; BMI 40.9
--- NOTE | 2018-10-01 23:10 | NUR ---
Received patient from ER via stretcher to 230, positioned in bed and connected to monitor. Assessment completed per flowsheet. Patient AO x4, answers appropriately/follows instructions. S1/S2 noted NSR on telemetry, breathing is shallow on 2L via NC. Denies pain or other needs at this time, see flowsheet for details. All VSS and will continue to monitor.
[2018-10-01 23:30] VITALS: BP 153/97
[2018-10-02] VITALS (17 sets, daily range): BP systolic 95–164; BP diastolic 69–100; Ht 188 cm; Wt 138.4 kg
--- NOTE | 2018-10-02 01:00 | NUR ---
Patient sleeping in bed on BiPAP 30% with O2 sat 94%, no s/s of distress at this time. All VSS and will continue to monitor.
--- NOTE | 2018-10-02 03:00 | NUR ---
Reassessment completed per flowsheet, no changes from previous assessment. S1/S2 noted NSR on telemetry with HR 81, rythmic and regular. Breathing is shallow on BiPAP 30% with O2 sat 94%, crackles noted bilateral upper and mid with diminished lower. All pulses palpable with cap refill < 3 sec, skin warm/dry. Denies pain or other needs at this time, see flowsheet for details. All VSS and will continue to monitor.
--- NOTE | 2018-10-02 05:00 | NUR ---
Patient resting in bed with eyes open on BiPAP 30%, no s/s of distress at this time. Denies pain or other needs, all VSS and will continue to monitor.
--- NOTE | 2018-10-02 07:15 | NUR ---
REPORT RECEIVED. PT RESTING QUIETLY WITH BIPAP ON AT 30%. IV IN LEFT HAND SALINE LOCKED. HEAD TO TOE ASSESSMENT PERFORMED. NO COMPLAINTS OR NEEDS AT THIS TIME.
[2018-10-02 08:16] LABS: APTT 22.4 SECONDS (22.8-39.4); INR 1.13 (0.85-1.17)
[2018-10-02 08:17] LABS: D-DIMER-QUANTITATIVE 2.51 ug/mLFEU (0.20-0.54)
[2018-10-02 08:22] LABS: % SATURATION 9 % (15-55); IRON 22 ug/dl (35-150); TOTAL IRON BIND CAPACITY 230 ug/dl (260-445); UNSAT IRON BIND CAPACITY 208 ug/dl (150-375)
[2018-10-02 08:27] LABS: ANION GAP 11.5 mmol/L (8-16); BILIRUBIN - TOTAL 0.55 mg/dL (0.2-1.3); CALCIUM 9.1 mg/dL (8.5-10.1); CARBON DIOXIDE 27.7 mmol/L (21.0-32.0); CREATININE - SERUM 3.8 mg/dL (0.6-1.3); MAGNESIUM - SERUM 2.4 mg/dL (1.8-2.4); POTASSIUM - SERUM 5.2 mmol/L (3.5-5.1); PROTEIN - SERUM 7.4 g/dL (6.4-8.2)
[2018-10-02 08:41] LABS: BASOPHILS 0 % (0-2); EOSINOPHILS 0 % (0-7); HEMATOCRIT 35.9 % (42.0-54.0); IMMATURE GRANULOCYTES 0.2 % (0-5); LYMPHOCYTES 7.1 % (15-50); MCH 27.7 pg (26.0-34.0); MCHC 30.6 g/dL (31.0-37.0); MCV 90.4 fL (80.0-100.0); MEAN PLATELET VOLUME 9.8 fL (7.4-10.4); MONOCYTES 1.7 % (2-11); PLATELET COUNT 193 10x3/uL (130-400); RBC 3.97 10x6/uL (4.20-6.10); RDW 15.6 % (11.5-14.5); WBC 5.4 10x3/uL (4.8-10.8)
--- NOTE | 2018-10-02 09:30 | NUR ---
PT SWITCHED TO NC AT 4L TO BE ABLE TO EAT BREAKFAST. HAD BOWEL MOVEMENT AFTER. HAD TO BE ASSISTED TO BEDSIDE COMMODE. UNABLE TO USE RIGHT LEG COMPLETELY. STATES IT'S DUE TO ARTHRITIS IN HIS KNEE. NO OTHER NEEDS AT THIS TIME.
--- NOTE | 2018-10-02 11:45 | NUR ---
PT ON BIPAP AT 30%. BS 325. TREATED PER SLIDING SCALE. WILL PUT ON NC FOR PT TO BE ABLE TO EAT LUNCH THEN WILL SWITCH BACK OVER TO BIPAP. PT HAS NO OTHER NEEDS AT THIS TIME. WILL MONITOR.
[2018-10-02 13:09] LABS: APPEARANCE CLEAR (CLEAR); COLOR STRAW (YELLOW)
[2018-10-02 13:10] LABS: BACTERIA FEW /hpf (NONE SEEN); BILIRUBIN NEGATIVE (NEGATIVE); EPITHELIAL CELLS 0-5 /hpf (0-5); GLUCOSE NEGATIVE (NEGATIVE); KETONE NEGATIVE (NEGATIVE); MUCUS <1+ /lpf (NONE SEEN); NITRITE NEGATIVE (NEGATIVE); PROTEIN NEGATIVE (NEGATIVE); RED CELLS - URINE 0-5 /hpf (0-5); SPECIFIC GRAVITY 1.015 (1.005-1.020); UROBILINOGEN NORMAL (NORMAL); WHITE CELLS - URINE RARE /hpf (0-5)
--- NOTE | 2018-10-02 13:45 | NUR ---
PUT PT BACK ON BIPAP AT 30%. PT HAD BM. LIQUID STOOL.
--- NOTE | 2018-10-02 15:15 | NUR ---
PT RESTING QUIETLY. ON BIPAP. NO COMPLAINTS.
--- NOTE | 2018-10-02 18:27 | NUR ---
RECEIVED REPORT FROM PABLO IN ICU.
--- NOTE | 2018-10-02 18:32 | NUR ---
REPORT CALLED TO ROMULO AMEZCUA, FOR PT GOING TO 2103.
--- NOTE | 2018-10-02 18:47 | NUR ---
RECEIVED VIA WHEELCHAIR TO ROOM. PLACED ON 4L PER NC. LEFT HAND PIV SEEN WITH SALINE LOCK.
--- NOTE | 2018-10-02 20:15 | NUR ---
RECIEVED BEDISIDE REPORT. VSS, AAOX3. DEMANDING. NO S/S OF RR DISTRESS. PT LOWER EXTREMITIES APPEARS DRY AND FLAKY. HEALING MASS ON RIGHT GREAT TOE. PT CURRENTLY ON BIPAP 30%. DENIES ANY FURTHER NEEDS AT THIS TIME. WILL CPOC.
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
--- NOTE | 2018-10-03 04:00 | NUR ---
PT LAYING IN BED RESTING COMFORTABLY WITH EYES CLOSED. NO S/S OF DISTRESS NOTED. BED IN LOW POSITION WITH CALL LIGHT IN REACH. SIDE RAILS UP X 2. WILL CONTINUE TO MONITOR PT AND FOLLOW PLAN OF CARE.
[2018-10-03 05:48] LABS: BASOPHILS 0 % (0-2); EOSINOPHILS 0 % (0-7); HEMOGLOBIN 10.3 g/dL (13.5-17.5); IMMATURE GRANULOCYTES 0.3 % (0-5); LYMPHOCYTES 4.1 % (15-50); MCH 27.8 pg (26.0-34.0); MCHC 31.2 g/dL (31.0-37.0); MCV 88.9 fL (80.0-100.0); MEAN PLATELET VOLUME 10.4 fL (7.4-10.4); MONOCYTES 7.6 % (2-11); PLATELET COUNT 183 10x3/uL (130-400); RBC 3.71 10x6/uL (4.20-6.10); RDW 15.4 % (11.5-14.5)
[2018-10-03 06:01] LABS: ANION GAP 11.5 mmol/L (8-16); CALCIUM 8.6 mg/dL (8.5-10.1); CARBON DIOXIDE 30.1 mmol/L (21.0-32.0); CREATININE - SERUM 3.8 mg/dL (0.6-1.3); POTASSIUM - SERUM 4.6 mmol/L (3.5-5.1)
[2018-10-03 06:16] VITALS: BP 147/89
[2018-10-03 06:40] LABS: WBC 7.9 10x3/uL (4.8-10.8)
--- NOTE | 2018-10-03 07:10 | NUR ---
REPORT RECIEVED FROM FRATERNITY ADVISER AND PATIENT CARE ASSUMED. PATIENT AWAKE, ALERT AND ORIENTED X 4. PATIENT IS STABLE AND VSS. PATIENT DENIES ANY NEEDS OR PAIN. WILL CONTINUE WITH PLAN OF CARE. SR UP X 2 BED IN LOW POSITION AND CALL LIGHT IN REACH.
[2018-10-03 08:24] VITALS: BP 140/92
[2018-10-03 09:14] LABS: FOLATE (FOLIC ACID) - SERUM 18.3 ng/mL (>3.0)
[2018-10-03 11:36] VITALS: BP 122/75
[2018-10-03 15:23] VITALS: BP 145/90
[2018-10-03 15:37] LABS: CREATININE - URINE 87.4 mg/dL (30-125); PRO/CRE RATIO URINE 0.3 mg/g
--- NOTE | 2018-10-03 15:51 | NUR ---
PATIENT RESTING COMFORTABLY IN BED WITH EYES CLOSED AND BREATHING EVENLY. BIPAP IN PLACE. WILL CONTINUE TO MONITOR. SR UP X2 BED IN LOW POSTION AND CALL LIGHT IN REACH.
--- NOTE | 2018-10-03 16:00 | NUR ---
MADE SEVERAL ATTEMPTS TO COLLECT SPUTUM SPECIMEN BUT PATIENT HAS REARE, NOPRODUCTIVE COUGH.
--- NOTE | 2018-10-03 18:26 | NUR ---
PATIENT STABLE AND UNCHANGED. WILL CONTINUE TO MONITOR.
--- NOTE | 2018-10-03 19:45 | NUR ---
RESUMING PT CARE. PT IS ALERT LAYING IN BED. NO C/O VOICED. NO DISTRESS NOTED. BED IN LOW POSITON WITH CALL LIGHT IN REACH. SIDE RAILS UP X 2. WILL CONTINUE TO MOINTOR PT AND FOLLOW PLAN OF CARE.
[2018-10-03 20:00] VITALS: BP 144/87
[2018-10-04] VITALS: BP 162/99
[2018-10-04 04:00] VITALS: BP 132/74
--- NOTE | 2018-10-04 05:10 | NUR ---
I have reviewed this patient and I concur with the Shift Assessment completed by the Licensed Practical Nurse today this shift.
[2018-10-04 05:52] LABS: BASOPHILS 0 % (0-2); EOSINOPHILS 0 % (0-7); HEMATOCRIT 32.1 % (42.0-54.0); HEMOGLOBIN 10.1 g/dL (13.5-17.5); IMMATURE GRANULOCYTES 0.3 % (0-5); LYMPHOCYTES 5.2 % (15-50); MCH 27.6 pg (26.0-34.0); MCHC 31.5 g/dL (31.0-37.0); MCV 87.7 fL (80.0-100.0); MEAN PLATELET VOLUME 9.7 fL (7.4-10.4); MONOCYTES 6.1 % (2-11); NEUTROPHILS 88.4 % (40-80); PLATELET COUNT 172 10x3/uL (130-400); RBC 3.66 10x6/uL (4.20-6.10); RDW 15.1 % (11.5-14.5); WBC 6.9 10x3/uL (4.8-10.8)
[2018-10-04 06:09] LABS: ANION GAP 6.2 mmol/L (8-16); CALCIUM 8.3 mg/dL (8.5-10.1); CARBON DIOXIDE 33.1 mmol/L (21.0-32.0); CREATININE - SERUM 3.7 mg/dL (0.6-1.3); POTASSIUM - SERUM 4.3 mmol/L (3.5-5.1)
--- NOTE | 2018-10-04 07:10 | NUR ---
REPORT RECEIVED FROM PADDING GLUER AND PATIENT CARE ASSUMED. PATIENT SITTING UP IN BED AWAKE, ALERT AND ORIENTED X 4. O2 NC AT 3.5 L INTACT. VSS. PATIENT DENIES ANY NEEDS OR PAIN. WILL CONTINUE WITH PLAN OF CARE. SR UP X 2 BED IN LOW POSTION AND CALL LIGHT IN REACH.
[2018-10-04 08:00] VITALS: BP 156/94
--- NOTE | 2018-10-04 10:10 | NUR ---
22G IV PLACED IN LEFT WRIST PER NEHA GUSTAFSON RN STUDENT. SALINE LOCKED AT THIS TIME.
[2018-10-04 12:11] VITALS: BP 139/80
--- NOTE | 2018-10-04 14:53 | MORECARE ---
CASE MANAGEMENT DISCHARGE SUMMARY PATIENT: ANNABELLA FONTENOT UNIT: [id number] ADM DATE: 10/01/18 AGE: 73 : 47 SEX: M ROOM/BED: D.2104 AUTHOR: RO MASSEY PHYSICIAN: REFERRING PHYSICIAN: RUTHANN CAMPBELL MD DATE OF SERVICE: 10/04/18 Discharge Plan Patient Name: ANNABELLA FONTENOT Facility: [facility]:[place] : 1945 Planned Disposition: Home Anticipated Discharge Date: Discharge Date: Expected LOS: Initial Reviewer: [email or web address] Initial Review Date: 10/01/2018 Generated: 10/04/18 3:53 pm DCPIA - Discharge Planning Initial Assessment Updated by [email or web address]: Miguel Patton on 10/04/18 2:49 pm * Is the patient Alert and Oriented? Yes * How many steps to enter\exit or inside your home? NONE/ RAMP * PCP LYLY PATEL * Pharmacy [facility] * Preadmission Environment Home Alone * ADLs Independent * Equipment BIPAP Cane Oxygen Walker Wheelchair * Other Equipment UNKNOWN [employer] * List name and contact numbers for known caregivers / representatives who currently or will assist patient after discharge: MISTI ACOSTA DTR, WIL COLON, [place] [phone] * Verbal permission to speak to the caregivers and representatives has been obtained from the patient. Yes * Community resources currently utilized Other Private Duty Care * Please name any agencies selected above. OUTPATIENT WOUND CARE AT [facility] [address], 5 DAYS PER WEEK, 8AM TO 6PM * Additional services required to return to the preadmission environment? No * Can the patient safely return to the preadmission environment? Yes * Has this patient been hospitalized within the prior 30 days at any hospital? No Patient Name: ANNABELLA FONTENOT Page [id number] at 1453 All edits/amendments must be made on the electronic document DICTATION DATE: 10/04/18 0086 CHERRY PICKER OPERATOR: ARIAN 10/04/18 1453 RPT#: [id number] DC DATE: STATUS: ADM IN [facility] [address] [place] [address] END OF REPORT
--- NOTE | 2018-10-04 15:01 | MORECARE ---
CASE MANAGEMENT DISCHARGE SUMMARY PATIENT: ANNABELLA FONTENOT UNIT: [id number] ADM DATE: 10/01/18 AGE: 73 : 47 SEX: M ROOM/BED: D.2104 AUTHOR: BRYSON,DOC PHYSICIAN: REFERRING PHYSICIAN: RUTHANN CAMPBELL MD DATE OF SERVICE: 10/04/18 Discharge Plan Patient Name: ANNABELLA FONTENOT Facility: [facility]:[place] : 1945 Planned Disposition: Home Anticipated Discharge Date: Discharge Date: Expected LOS: Initial Reviewer: [email or web address] Initial Review Date: 10/01/2018 Generated: 10/04/18 4:01 pm Comments DCP- Discharge Planning Updated by [email or web address]: Miguel Patton on 10/04/18 1:[address] Patient Name: ANNABELLA FONTENOT Admission Status: ER Accout number: [id number] Admission Date: 10-01-2018 : 1945 Admission Diagnosis:SHORTNESS OF BREATH Attending: RUTHANN CAMPBELL Current LOS: 3 Anticipated DC Date: Planned Disposition: Home Primary Insurance: MEDICARE A & B Discharge Planning Comments: CM MET WITH PT IN ROOM TO DISCUSS DISCHARGE PLANNING AND NEEDS. PT REPORTS LIVING AT HOME INDEPENDENTLY AND ALONE. PT HAS CANE, PICPAP, HOME OXYGEN, WALKER AND WHEELCHAIR FROM [employer]. PT HAS [facility] FOR NURSING AND PHYSICAL THERAPY WELL MAPPING ENGINEER SERVICES 5 DAYS PER WEEK WITH [facility] ON [address]. CM DISCUSSED AVAILABILITY OF HOME HEALTH, REHAB SERVICES AND MEDICAL EQUIPMENT. PT DENIES DISCHARGE NEEDS OTHER THAN [facility], REPORTS HIS FAMILY WILL PICK HIM UP FOR DISCHARGE HOME. CHOICE FOR [facility] SIGNED. PT PLANS TO DISCHARGE HOME ALONE WITH [facility] SERVICES AND HOME HEALTH RESUMPTION. FAMILY TO TRANSPORT AT DISCHARGE. FOR DISCHARGE FAX ORDER AND DISCHARGE INFORMATION TO RYLIE JAMA OFFICE AT [phone] CALL AND NOTIFY [facility] OF DISCHARGE HOME [phone]. Straightener: Miguel Patton DCPIA - Discharge Planning Initial Assessment Updated by [email or web address]: Miguel Patton on 10/04/18 2:49 pm * Is the patient Alert and Oriented? Yes * How many steps to enter\exit or inside your home? NONE/ RAMP * PCP LYLY PATEL * Pharmacy [facility] * Preadmission Environment Home Alone * ADLs Independent * Equipment BIPAP Cane Oxygen Walker Wheelchair * Other Equipment UNKNOWN [employer] EQU[employer]MENT COMPANY * List name and contact numbers for known caregivers / representatives who currently or will assist patient after discharge: MISTI ACOSTA, DTR, ANNABELLA FONTENOT, SON, [place] [phone] * Verbal permission to speak to the caregivers and representatives has been obtained from the patient. Yes * Community resources currently utilized Other Private Duty Care * Please name any agencies selected above. OUTPATIENT WOUND CARE AT [facility] ON [address], 5 DAYS PER WEEK, 8AM TO 6PM * Additional services required to return to the preadmission environment? No * Can the patient safely return to the preadmission environment? Yes * Has this patient been hospitalized within the prior 30 days at any hospital? No Coverage Notice Reviewer: [id number] Woody Patton Notice Issued Date-Time: 10/04/2018 9:20 Notice Type: Patient Choice Letter Notice Delivered To: Patient Relationship to Patient: Watch And Clock Repairer Name: Delivery Method: HAND - Hand Delivered Morelia Days: Prior Verbal Notification: Recipient Understood Notice: Yes Recipient Signature: Yes Med Rec Note Co-signed by Attending: Coverage Notice Comment: [facility] Last DP export: 10/04/18 1:53 p Patient Name: ANNABELLA FONTENOT Page [id number] at 1501 All edits/amendments must be made on the electronic document DICTATION DATE: 10/04/18 1501 PLUMBING HARDWARE ASSEMBLER: ARIAN 10/04/18 1501 RPT#: [id number] DC DATE: STATUS: ADM IN [facility] [address] [place] [address] END OF REPORT
--- NOTE | 2018-10-04 15:42 | NUR ---
PATIENT LAYING ON BACK IN BED WITH EYES CLOSED AND BREATHING EVENLY. WILL CONTINUE TO MONITOR.
[2018-10-04 16:00] VITALS: BP 161/95
--- NOTE | 2018-10-04 17:44 | NUR ---
PATIENT IS STABLE AND UNCHANGED. WILL CONTINUE TO MONITOR. SR UP X 2 BED IN LOW POSITION AND CALL LIGHT IN REACH.
--- NOTE | 2018-10-04 19:53 | NUR ---
RESUMING PT CARE. PT IS ALERT LAYING IN BED. NO C/O VOICED. NO S/S OF DISTRESS NOTED. BED IN LOW POSITION WITH CALL LIGHT IN REACH. SIDE RAILS UP X 2. WILL CONTINUE TO MONITOR PT AND FOLLOW PLAN OF CARE.
--- NOTE | 2018-10-04 20:57 | NUR ---
RESTARTED IV TO LEFT WRIST WITH 22 GA
[2018-10-05] VITALS: BP 159/90
[2018-10-05 04:00] VITALS: BP 154/94
[2018-10-05 05:08] LABS: BASOPHILS 0 % (0-2); EOSINOPHILS 0 % (0-7); HEMATOCRIT 34.3 % (42.0-54.0); HEMOGLOBIN 10.9 g/dL (13.5-17.5); IMMATURE GRANULOCYTES 0.2 % (0-5); LYMPHOCYTES 5.9 % (15-50); MCH 27.7 pg (26.0-34.0); MCHC 31.8 g/dL (31.0-37.0); MCV 87.3 fL (80.0-100.0); MEAN PLATELET VOLUME 9.9 fL (7.4-10.4); MONOCYTES 6.1 % (2-11); NEUTROPHILS 87.8 % (40-80); PLATELET COUNT 183 10x3/uL (130-400); RBC 3.93 10x6/uL (4.20-6.10); WBC 5.6 10x3/uL (4.8-10.8)
[2018-10-05 05:24] LABS: ANION GAP 10.1 mmol/L (8-16); CALCIUM 8.3 mg/dL (8.5-10.1); CARBON DIOXIDE 31.3 mmol/L (21.0-32.0); CREATININE - SERUM 3.6 mg/dL (0.6-1.3); POTASSIUM - SERUM 4.4 mmol/L (3.5-5.1)
--- NOTE | 2018-10-05 07:10 | NUR ---
REPORT RECIEVED FROM FIELD IDENTIFICATION SPECIALIST AND PATIENT CARE ASSUMED. PATIENT LAYING IN HOSPITAL BED AWAKE, ALERT AND ORIENTED X 4. PATIENT IS BREATHING EVENLY AND NON LABORED. VSS AND PATIENT IS STABLE. PATIENT DENIES ANY NEEDS OR PAIN. WILL CONTINUE WITH PLAN OF CARE. SR UP X 2 BED IN LOW POSITION AND CALL LIGHT IN REACH.
[2018-10-05 08:22] VITALS: BP 161/115
--- NOTE | 2018-10-05 09:55 | NUR ---
Nutrition Follow Up: Renal ADA diet with 100,75,100% of meals yesterday Cirilo ordered BID and pt reports consuming Cirilo BG [address] how long he has to stay on this diet Reviewed labs: Recommend a 2gm Na Diabetic diet rather than Renal ADA RD following
[2018-10-05 12:12] VITALS: BP 143/85
--- NOTE | 2018-10-05 13:17 | NUR ---
PATIENT LAYING IN BED ON BACK WITH EYS CLOSED AND BREATHING EVENLY. VSS. WILL CONTINUE TO MONITOR. SR UP X 2 BED IN LOW POSTION AND CALL LIGHT IN REACH.
[2018-10-05 16:36] VITALS: BP 142/70
[2018-10-05 20:00] VITALS: BP 152/96
[2018-10-06] VITALS: BP 145/88
--- NOTE | 2018-10-06 01:11 | NUR ---
PATIENT KEEPS TAKING HIS BIPAP MASK OFF WILL NOT LEAVE IT ON
[2018-10-06 04:00] VITALS: BP 147/95
[2018-10-06 04:57] LABS: BASOPHILS 0 % (0-2); EOSINOPHILS 0 % (0-7); HEMATOCRIT 34.3 % (42.0-54.0); HEMOGLOBIN 10.9 g/dL (13.5-17.5); IMMATURE GRANULOCYTES 0.3 % (0-5); LYMPHOCYTES 15.1 % (15-50); MCH 27.7 pg (26.0-34.0); MCHC 31.8 g/dL (31.0-37.0); MCV 87.1 fL (80.0-100.0); MONOCYTES 13.5 % (2-11); NEUTROPHILS 71.1 % (40-80); PLATELET COUNT 181 10x3/uL (130-400); RBC 3.94 10x6/uL (4.20-6.10)
[2018-10-06 05:13] LABS: ANION GAP 6.4 mmol/L (8-16); CALCIUM 8.4 mg/dL (8.5-10.1); CARBON DIOXIDE 35.3 mmol/L (21.0-32.0)
[2018-10-06 05:27] LABS: POTASSIUM - SERUM 3.7 mmol/L (3.5-5.1)
[2018-10-06 07:51] VITALS: BP 147/98
--- NOTE | 2018-10-06 10:13 | NUR ---
PATIENT IS LAYING ON HIS BACK IN BED. HE IS ALERT AND ORIENTED AND ATE HIS BREAKFAST. HIS BLOOD SUGAR WAS LOW, SEE FLOW SHEET , THIS MORNING, AND HE WAS GIVEN APPLE JUICE AND BREAKFAST. HELD HIS LONG ACTING INSULIN BECAUSE OF THE LOW BLOOD SUGAR. HE DENIES ANY NEEDS AT THIS TIME.
[2018-10-06 10:50] VITALS: BP 143/85
--- NOTE | 2018-10-06 12:15 | NUR ---
IV IN RIGHT WRIST IS DISLODGED , REMOVED WITH CATHETER INTACT. PATIENT TOLERATED.
--- NOTE | 2018-10-06 13:55 | NUR ---
NEW IV STARTED IN LEFT HAND. 22 G SECOND STICK. PATIENT TOLERATED. ANTIBIOTICS INFUSING.
--- NOTE | 2018-10-06 15:00 | NUR ---
I have reviewed this patient and I concur with the Shift Assessment completed by the Licensed Practical Nurse today this shift.
[2018-10-06 15:16] VITALS: BP 164/89
--- NOTE | 2018-10-06 19:31 | NUR ---
EVENING ROUNDS MADE. PT SITTING UP IN BED RECEIVING BREATHING TREATMENT. DENIES PAIN AT THIS TIME. A/O X 4. UP WITH ASSISTANCE, WEAKNESS NOTED. L HAND IV SL, PATENT, NO REDNESS OR EDEMA. 4L O2 VIA NC. NORMAL SINUS ON TELE. LUNGS DIMINISHED TO ALL LOBES. NO FURTHER CONCERNS AT THIS TIME. SAFETY PRECATIONS IN PLACE. YELLOW GOWN ON, NON SKID SOCKS ON. SR UP X 2. CL IN REACH. BED LOWERED AND LOCKED. WILL CTM.
[2018-10-06 20:13] VITALS: BP 127/76
--- NOTE | 2018-10-06 21:26 | NUR ---
TOOK MEDS WITHOUT DIFFICULTY. LASIX GIVEN TO IV IN L HAND, PATENT, DRSG C/D/I. 16 UNITS INSULIN GIVEN TO ABD. PT REQUESTED SNACK, SUGAR FREE JELLO SUPPLIED TO PT. NO FURTHER CONCERNS AT THIS TIME. PT LAID BACK IN BED, SAFETY PRECAUTIONS IN PLACE. WILL CTM.
--- NOTE | 2018-10-07 00:02 | NUR ---
PT BIPAP ALARMING. UPON ENTERING PT ROOM, BIPAP IN FLOOR AND PT NOT WEARING BIPAP OR OXYGEN. ASKED PT WHY HE WASNT WEARING BIPAP. PT STATED "I CANT SLEEP WITH THAT THING ON" ATTEMPTS TO GET PT TO WEAR BIPAP HAVE BEEN FUTILE. O2 APPLIED TO PT. NO FURTHER CONCENRS AT THIS TIME. WILL CTM.
[2018-10-07 00:52] VITALS: BP 161/87
--- NOTE | 2018-10-07 02:31 | NUR ---
PATIENT REFUSES TO KEEP BIPAP ON. PATIENT WILL LEAVE ON FOR A FEW MINUTES THEN TAKE IT OFF. REFUSED METANEB STATED HE DIDNT LIKE IT
--- NOTE | 2018-10-07 03:00 | NUR ---
I have reviewed this patient and I concur with the Shift Assessment completed by the Licensed Practical Nurse today this shift.
[2018-10-07 03:45] VITALS: BP 151/89
--- NOTE | 2018-10-07 04:30 | NUR ---
PT LAYING IN BED RESTING COMFORTABLY. BREATHING EVEN AND UNLABORED. 4L 02 VIA NC. REFUSES BIPAP. NO FURTHER CONCERNS AT THIS TIME. SAFETY PRECAUTIONS IN PLACE. CL IN REACH. BED LOWERED AND LOCKED. WILL CTM.
[2018-10-07 05:26] LABS: BASOPHILS 0 % (0-2); EOSINOPHILS 0.2 % (0-7); HEMATOCRIT 36.6 % (42.0-54.0); HEMOGLOBIN 11.6 g/dL (13.5-17.5); IMMATURE GRANULOCYTES 0.2 % (0-5); LYMPHOCYTES 15.9 % (15-50); MCH 27.4 pg (26.0-34.0); MCHC 31.7 g/dL (31.0-37.0); MCV 86.5 fL (80.0-100.0); MONOCYTES 10.6 % (2-11); NEUTROPHILS 73.1 % (40-80); PLATELET COUNT 177 10x3/uL (130-400); RBC 4.23 10x6/uL (4.20-6.10); RDW 15.1 % (11.5-14.5); WBC 6.3 10x3/uL (4.8-10.8)
[2018-10-07 05:42] LABS: ANION GAP 8.6 mmol/L (8-16); CALCIUM 8.5 mg/dL (8.5-10.1); CARBON DIOXIDE 35.3 mmol/L (21.0-32.0); POTASSIUM - SERUM 3.9 mmol/L (3.5-5.1)
--- NOTE | 2018-10-07 08:07 | NUR ---
AAOX4, SHORT OF BREATH, ON 4LPM VIA NC, ON TELEMETRY, IV TO LEFT THUMB, PATENT, SALINE LOCKED, DENIES ANY CURRENT NEEDS OR DISCOMFORTS, BED LOWERED AND LOCKED, CALL LIGHT WITHIN REACH. CPOC
[2018-10-07 08:11] VITALS: BP 140/86
[2018-10-07 12:17] VITALS: BP 143/76
--- NOTE | 2018-10-07 13:17 | NUR ---
I have reviewed this patient and I concur with the Shift Assessment completed by the Licensed Practical Nurse today this shift.
[2018-10-07 15:25] VITALS: BP 146/70
[2018-10-07 19:55] VITALS: BP 132/77
--- NOTE | 2018-10-07 21:00 | NUR ---
ROUND COMPLETED. VSS, AAOX3. NO S/S OF RR DISTRESS. BIPAP NOT ON AT THIS TIME. PT STATE S HE HAS NOT HAD IT ON ALL DAY. SCABS/DRY SKIN TO R/L LEG. PT C/O PAIN 01/19. PO PRN NORCO GIVEN. WILL CTM. ELSIE CRACKER GIVEN PER PT REQUEST. AILL CPOC. CL IN REACH, BED IN LOW.
[2018-10-08 03:25] VITALS: BP 143/77
[2018-10-08 04:44] LABS: ANION GAP 6.1 mmol/L (8-16); CALCIUM 8.8 mg/dL (8.5-10.1); CARBON DIOXIDE 38.7 mmol/L (21.0-32.0); POTASSIUM - SERUM 3.8 mmol/L (3.5-5.1)
[2018-10-08 04:47] LABS: BASOPHILS 0 % (0-2); EOSINOPHILS 0.3 % (0-7); HEMATOCRIT 38.4 % (42.0-54.0); HEMOGLOBIN 12.2 g/dL (13.5-17.5); IMMATURE GRANULOCYTES 0.5 % (0-5); LYMPHOCYTES 14.2 % (15-50); MCH 27.7 pg (26.0-34.0); MCHC 31.8 g/dL (31.0-37.0); MCV 87.3 fL (80.0-100.0); MONOCYTES 9.2 % (2-11); NEUTROPHILS 75.8 % (40-80); PLATELET COUNT 193 10x3/uL (130-400); WBC 6.2 10x3/uL (4.8-10.8)
--- NOTE | 2018-10-08 08:00 | NUR ---
AM ROUNDS COMPLETED. INTRODUCED MYSELF TO PT PRIMARY RN FOR TODAYS SHIFT. PT IS A&O SITTING UP IN BED EATING BREAKFAST. SHIFT ASSESSMENT COMPLETED. PT STATES HE IS FEELING "GREAT" OVERALL AND WANTS TO BE DISCHARGED TODAY. PT C/O BILAT KNEE AND LEG PAIN ALONG WITH BACK PAIN REQUESTING PRN PAIN MEDICATION, I WILL PULL MORNING MEDICATIONS ALONG WITH THE NORCO FOR PRN PAIN. PT VOICED THANKS AND DENIES ANY IMMEDIATE NEEDS AT THIS TIME, CL IN REACH, BED IN LOWEST, SIDE RAILS X2. WILL CTM.
[2018-10-08 09:00] VITALS: BP 140/92
--- NOTE | 2018-10-08 10:24 | NUR ---
PT INQUIRING ABOUT BEING DISCHARGED TODAY. TOLD HIM I WILL DISCUSS WITH PRIMARY AND FIND OUT. PT STATES HE LIVES AT HOME ALONE AND HAS HOME HEALTH AND HAS HOME OXYGEN AND WOULDNT NEED ANY FURTHER ASSISTANCE. WILL REVIEW CHART AND LABS AND DISCUSS WITH PRIMARY AND THE CONSULTS. NO CURRENT NEEDS. CL IN REACH, BED IN LOWEST, SIDE RAILS X2. WILL CPOC.
[2018-10-08 12:25] VITALS: BP 108/76
--- NOTE | 2018-10-08 12:40 | MORECARE ---
CASE MANAGEMENT DISCHARGE SUMMARY PATIENT: ANNABELLA FONTENOT UNIT: [id number] ADM DATE: 10/01/18 AGE: 73 : [birth year] SEX: M ROOM/BED: D.2104 AUTHOR: BRYSON,DOC PHYSICIAN: REFERRING PHYSICIAN: RUTHANN CAMPBELL MD DATE OF SERVICE: 10/08/18 Discharge Plan Patient Name: ANNABELLA FONTENOT Facility: [facility]:[place] : 1945 Planned Disposition: Home with Home Health Anticipated Discharge Date: 10/08/18 Discharge Date: Expected LOS: 7 Initial Reviewer: [id number] Initial Review Date: 10/01/2018 Generated: 10/08/18 1:39 pm Comments DCP- Discharge Planning Updated by [email or web address]: Miguel Patton on 10/04/18 1:[address] Patient Name: ANNABELLA FONTENOT Admission Status: ER Accout number: [id number] Admission Date: 10-01-2018 : 1945 Admission Diagnosis:SHORTNESS OF BREATH Attending: RUTHANN CAMPBELL Current LOS: 3 Anticipated DC Date: Planned Disposition: Home Primary Insurance: MEDICARE A & B Discharge Planning Comments: CM MET WITH PT IN ROOM TO DISCUSS DISCHARGE PLANNING AND NEEDS. PT REPORTS LIVING AT HOME INDEPENDENTLY AND ALONE. PT HAS CANE, PICPAP, HOME OXYGEN, WALKER AND WHEELCHAIR FROM [employer] PT HAS [facility] FOR NURSING AND PHYSICAL THERAPY WELL DADO OPERATOR SERVICES 5 DAYS PER WEEK WITH [facility] ON [address]. CM DISCUSSED AVAILABILITY OF HOME HEALTH, REHAB SERVICES AND MEDICAL EQUIPMENT. PT DENIES DISCHARGE NEEDS OTHER THAN [facility], REPORTS HIS FAMILY WILL PICK HIM UP FOR DISCHARGE HOME. CHOICE FOR [facility] SIGNED. PT PLANS TO DISCHARGE HOME ALONE WITH CAREGIVER SERVICES AND HOME HEALTH RESUMPTION. FAMILY TO TRANSPORT AT DISCHARGE. FOR DISCHARGE FAX ORDER AND DISCHARGE INFORMATION TO RYLIE JAMA OFFICE AT [phone] CALL AND NOTIFY [facility] OF DISCHARGE HOME [phone]. Retail Planning Manager: Miguel Patton DCPIA - Discharge Planning Initial Assessment Updated by [id number]: Miguel Patton on 10/08/18 12:36 pm * Is the patient Alert and Oriented? Yes * How many steps to enter\exit or inside your home? NONE/ RAMP * PCP DR. LUQUE WILLIAMSON * Pharmacy [facility] * Preadmission Environment Home Alone * ADLs Independent * Equipment BIPAP Cane Oxygen Walker Wheelchair * Other Equipment HOME AND PORTABLE OXYGEN UNKNOWN MEDICAL EQUIPMENT COMPANY * List name and contact numbers for known caregivers / representatives who currently or will assist patient after discharge: MISTI ACOSTA, DTR, ANNABELLA FONTENOT, SON, [place] [phone] * Verbal permission to speak to the caregivers and representatives has been obtained from the patient. Yes * Community resources currently utilized Other Private Duty Care * Please name any agencies selected above. OUTPATIENT WOUND CARE AT [facility] [address] [facility], 5 DAYS PER WEEK, 8AM TO 6PM * Additional services required to return to the preadmission environment? No * Can the patient safely return to the preadmission environment? Yes * Has this patient been hospitalized within the prior 30 days at any hospital? No External Providers [facility] Next Contact Date: 10/08/2018 Service Request Date: Service Type: Resolution: Reviewer: Comments: Coverage Notice Reviewer: [email or web address] Woody Patton Notice Issued Date-Time: 10/04/2018 9:20 Notice Type: Patient Choice Letter Notice Delivered To: Patient Relationship to Patient: Gun Club Manager Name: Delivery Method: HAND - Hand Delivered Morelia Days: Prior Verbal Notification: Recipient Understood Notice: Yes Recipient Signature: Yes Med Rec Note Co-signed by Attending: Coverage Notice Comment: [facility] Reviewer: [email or web address] Woody Patton Notice Issued Date-Time: 10/08/2018 12:20 Notice Type: IM Discharge Notice Notice Delivered To: Patient Relationship to Patient: Gun Club Manager Name: Delivery Method: HAND - Hand Delivered Morelia Days: Prior Verbal Notification: Recipient Understood Notice: Yes Recipient Signature: Yes Med Rec Note Co-signed by Attending: Coverage Notice Comment: Last DP export: 10/04/18 2:01 p Patient Name: ANNABELLA FONTENOT Page [id number] at 1240 All edits/amendments must be made on the electronic document DICTATION DATE: 10/08/18 1239 GROUT MACHINE TENDER: ARIAN 10/08/18 1239 RPT#: [id number] DC DATE: STATUS: ADM IN [facility] [address] [place] [address] END OF REPORT
--- NOTE | 2018-10-08 12:43 | NUR ---
PT CLEARED FROM DISCHARGE FROM ALL CONSULTS. RESTING ROOM AIR O2 SATURATION 92% PT WILL BE PICKED UP VIA [facility]. PAGED PRIMARY FOR OFFICIAL DISCHARGE ORDERS. NO CURRENT NEEDS. WILL CTM.
[2018-10-08] MEDS ORDERED: OMNICEF300 MG PO (12:50)
[2018-10-08] MEDS ORDERED: DOXYCYCLINE HY100 M2 PO (12:51)
--- NOTE | 2018-10-08 12:56 | MORECARE ---
CASE MANAGEMENT DISCHARGE SUMMARY PATIENT: ANNABELLA FONTENOT UNIT: [id number] ADM DATE: 10/01/18 AGE: 73 : [birth year] SEX: M ROOM/BED: D.2104 AUTHOR: BRYSON,DOC PHYSICIAN: REFERRING PHYSICIAN: RUTHANN CAMPBELL MD DATE OF SERVICE: 10/08/18 Discharge Plan Patient Name: ANNABELLA FONTENOT Facility: [facility]:[place] : 1945 Planned Disposition: Home with Home Health Anticipated Discharge Date: 10/08/18 Discharge Date: Expected LOS: 7 Initial Reviewer: [id number] Initial Review Date: 10/01/2018 Generated: 10/08/18 1:56 pm Comments DCP- Discharge Planning Updated by [email or web address]: Miguel Patton on 10/08/18 11:[address] Patient Name: ANNABELLA FONTENOT Admission Status: ER Accout number: [id number] Admission Date: 10-01-2018 : 1945 Admission Diagnosis:SHORTNESS OF BREATH Attending: RUTHANN CAMPBELL Current LOS: 3 Anticipated DC Date: Planned Disposition: Home Primary Insurance: MEDICARE A & B Discharge Planning Comments: CM MET WITH PT IN ROOM TO DISCUSS DISCHARGE PLANNING AND NEEDS. PT DENIES DISCHARGE NEEDS. PT REPORTS HE DOES HAVE SMALL BOTTLES OF OXYGEN AT HOME WELL HIS OXYGEN MACHINE, BUT HE DOES NOT USE THE BOTTLES. PT REPORTS HAVING NO ONE TO PICK HIM UP TODAY AND WANTS MEDICAID TRANSPORT TO TAKE HIM HOME. PT ASSURES CM HE CAN WALK TO GET ON AND OFF THE BUS, HAS KEYS TO GET INTO HIS HOME ONCE HE IS THERE. IMPORTANT MESSAGE FROM MEDICARE PROVIDED AND EXPLAINED. CM RECEIVED OXYGEN TESTING, PT 92% AT REST, BEDSIDE NURSE ADVISED PT DOES NOT NEED PORTABLE OXYGEN FOR TRANSPORT HOME. CM CALLED AND NOTIFY [facility] J[facility] OF DISCHARGE HOME AT [phone]. CM CALLED MEDICAID TRANSPORT, , SCHEDULED ACCOUNTING SUPERVISOR FOR 3PM TODAY; CONFIRMATION #[id number]. PT PLANS TO DISCHARGE HOME ALONE WITH CAREGIVER SERVICES AND HOME HEALTH RESUMPTION. MEDICAID BUS TO TRANSPORT AT DISCHARGE, ACCOUNTING SUPERVISOR AT 3PM TODAY. CM TO FAX ORDER AND DISCHARGE INFORMATION TO [facility] OFFICE AT [phone] Educational Therapist: Miguel [place] DCPIA - Discharge Planning Initial Assessment Updated by [id number]: Miguel Patton on 10/08/18 12:36 pm * Is the patient Alert and Oriented? Yes * How many steps to enter\exit or inside your home? NONE/ RAMP * PCP DR. LUQUE [place] [facility] * Pharmacy [facility] * Preadmission Environment Home Alone * ADLs Independent * Equipment BIPAP Cane Oxygen Walker Wheelchair * Other Equipment HOME AND PORTABLE OXYGEN UNKNOWN [employer] * List name and contact numbers for known caregivers / representatives who currently or will assist patient after discharge: MISTI ACOSTA DTR, ANNABELLA FONTENOT, SON, [place] [phone] * Verbal permission to speak to the caregivers and representatives has been obtained from the patient. Yes * Community resources currently utilized Other Private Duty Care * Please name any agencies selected above. OUTPATIENT WOUND CARE AT [facility] ON [facility] PERSONAL CARE, 5 DAYS PER WEEK, 8AM TO 6PM * Additional services required to return to the preadmission environment? No * Can the patient safely return to the preadmission environment? Yes * Has this patient been hospitalized within the prior 30 days at any hospital? No Coverage Notice Reviewer: [id number] Woody Patton Notice Issued Date-Time: 10/04/2018 9:20 Notice Type: Patient Choice Letter Notice Delivered To: Patient Relationship to Patient: Outsole Scheduler Name: Delivery Method: HAND - Hand Delivered Morelia Days: Prior Verbal Notification: Recipient Understood Notice: Yes Recipient Signature: Yes Med Rec Note Co-signed by Attending: Coverage Notice Comment: [facility] Reviewer: [id number] Woody Patton Notice Issued Date-Time: 10/08/2018 12:20 Notice Type: IM Discharge Notice Notice Delivered To: Patient Relationship to Patient: Outsole Scheduler Name: Delivery Method: HAND - Hand Delivered Morelia Days: Prior Verbal Notification: Recipient Understood Notice: Yes Recipient Signature: Yes Med Rec Note Co-signed by Attending: Coverage Notice Comment: Last DP export: 10/08/18 11:40 a Patient Name: ANNABELLA FONTENOT Page 35650 at 1256 All edits/amendments must be made on the electronic document DICTATION DATE: 10/08/18 1250 AIRLINE OPERATIONS AGENT: DM 10/08/18 1256 RPT#: [id number] DC DATE: STATUS: ADM IN [facility] [address] [place] [address] END OF REPORT
--- NOTE | 2018-10-08 14:30 | NUR ---
DISCHARGE TEACHING PROVIDED AND PAPERS SIGNED. PT VERBALIZED UNDERSTANDING AND DENIES ANY QUESTIONS OR CONCERNS. ALL BELONGINGS COLLECTED. D/C PTS L.HAND PIV WITH CATHETER TIP FULLY INTACT. EMPTIED BEDSIDE URINAL OF 600ML CLEAR YELLOW URINE. PT DENIES ANY CURRRENT PAIN OR NEEDS AT THIS TIME, WAITING ON TRANSPORTATION. WILL CTM.
--- NOTE | 2018-10-08 15:41 | MORECARE ---
CASE MANAGEMENT DISCHARGE SUMMARY PATIENT: ANNABELLA FONTENOT UNIT: [id number] ADM DATE: 10/01/18 AGE: 73 : [birth year] SEX: M ROOM/BED: D.2104 AUTHOR: BRYSON,DOC PHYSICIAN: REFERRING PHYSICIAN: RUTHANN CAMPBELL MD DATE OF SERVICE: 10/08/18 Discharge Plan Patient Name: ANNABELLA FONTENOT Facility: [facility]:[place] : 1945 Planned Disposition: Home with Home Health Anticipated Discharge Date: 10/08/18 Discharge Date: Expected LOS: 7 Initial Reviewer: [id number] Initial Review Date: 10/01/2018 Generated: 10/08/18 4:41 pm Comments DCP- Discharge Planning Updated by [email or web address]: Miguel Patton on 10/08/18 11:[address] Patient Name: ANNABELLA FONTENOT Admission Status: ER Accout number: [id number] Admission Date: 10-01-2018 : 1945 Admission Diagnosis:SHORTNESS OF BREATH Attending: RUTHANN CAMPBELL Current LOS: 3 Anticipated DC Date: Planned Disposition: Home Primary Insurance: MEDICARE A & B Discharge Planning Comments: CM MET WITH PT IN ROOM TO DISCUSS DISCHARGE PLANNING AND NEEDS. PT DENIES DISCHARGE NEEDS. PT REPORTS HE DOES HAVE SMALL BOTTLES OF OXYGEN AT HOME WELL HIS OXYGEN MACHINE, BUT HE DOES NOT USE THE BOTTLES. PT REPORTS HAVING NO ONE TO PICK HIM UP TODAY AND WANTS MEDICAID TRANSPORT TO TAKE HIM HOME. PT ASSURES CM HE CAN WALK TO GET ON AND OFF THE BUS, HAS KEYS TO GET INTO HIS HOME ONCE HE IS THERE. IMPORTANT MESSAGE FROM MEDICARE PROVIDED AND EXPLAINED. CM RECEIVED OXYGEN TESTING, PT 92% AT REST, BEDSIDE NURSE ADVISED PT DOES NOT NEED PORTABLE OXYGEN FOR TRANSPORT HOME. CM CALLED AND NOTIFY [facility] OF DISCHARGE HOME AT [phone]. CM CALLED MEDICAID TRANSPORT, , SCHEDULED CABLE SYSTEMS INSTALLER FOR 3PM TODAY; CONFIRMATION #[id number]. PT PLANS TO DISCHARGE HOME ALONE WITH CAREGIVER SERVICES AND HOME HEALTH RESUMPTION. MEDICAID BUS TO TRANSPORT AT DISCHARGE, CABLE SYSTEMS INSTALLER AT 3PM TODAY. CM TO FAX ORDER AND DISCHARGE INFORMATION TO [facility] OFFICE AT [phone] Diamond Sander: Miguel [place] DCPIA - Discharge Planning Initial Assessment Updated by [email or web address]: Miguel Patton on 10/08/18 12:36 pm * Is the patient Alert and Oriented? Yes * How many steps to enter\exit or inside your home? NONE/ RAMP * PCP DR. LUQUE [facility] * Pharmacy [facility] * Preadmission Environment Home Alone * ADLs Independent * Equipment BIPAP Cane Oxygen Walker Wheelchair * Other Equipment HOME AND PORTABLE OXYGEN UNKNOWN [employer] * List name and contact numbers for known caregivers / representatives who currently or will assist patient after discharge: MISTI ACOSTA DTR, ANNABELLA FONTENOT, SON, [place] [phone] * Verbal permission to speak to the caregivers and representatives has been obtained from the patient. Yes * Community resources currently utilized Other Private Duty Care * Please name any agencies selected above. OUTPATIENT WOUND CARE AT [facility] ON [facility]ERSONAL CARE, 5 DAYS PER WEEK, 8AM TO 6PM * Additional services required to return to the preadmission environment? No * Can the patient safely return to the preadmission environment? Yes * Has this patient been hospitalized within the prior 30 days at any hospital? No Coverage Notice Reviewer: [id number] Woody Patton Notice Issued Date-Time: 10/04/2018 9:20 Notice Type: Patient Choice Letter Notice Delivered To: Patient Relationship to Patient: Production Illustrator Name: Delivery Method: HAND - Hand Delivered Morelia Days: Prior Verbal Notification: Recipient Understood Notice: Yes Recipient Signature: Yes Med Rec Note Co-signed by Attending: Coverage Notice Comment: [facility] Reviewer: [id number] Woody Patton Notice Issued Date-Time: 10/08/2018 12:20 Notice Type: IM Discharge Notice Notice Delivered To: Patient Relationship to Patient: Production Illustrator Name: Delivery Method: HAND - Hand Delivered Morelia Days: Prior Verbal Notification: Recipient Understood Notice: Yes Recipient Signature: Yes Med Rec Note Co-signed by Attending: Coverage Notice Comment: Last DP export: 10/08/18 11:56 a Patient Name: ANNABELLA FONTENOT Page 15305 at 1541 All edits/amendments must be made on the electronic document DICTATION DATE: 10/08/18 1540 SHEETING PULLER: ARIAN 10/08/18 1540 RPT#: [id number] DC DATE: STATUS: ADM IN [facility] [address] [place] [address] END OF REPORT
--- NOTE | 2018-10-08 15:49 | MORECARE ---
CASE MANAGEMENT DISCHARGE SUMMARY PATIENT: ANNABELLA FONTENOT UNIT: [id number] ADM DATE: 10/01/18 AGE: 73 : [birth year] SEX: M ROOM/BED: D.2104 AUTHOR: BRYSON,DOC PHYSICIAN: REFERRING PHYSICIAN: RUTHANN CAMPBELL MD DATE OF SERVICE: 10/08/18 Discharge Plan Patient Name: ANNABELLA FONTENOT Facility: [facility]:[place] : 1945 Planned Disposition: Home with Home Health Anticipated Discharge Date: 10/08/18 Discharge Date: Expected LOS: 7 Initial Reviewer: [id number] Initial Review Date: 10/01/2018 Generated: 10/08/18 4:49 pm Comments DCP- Discharge Planning Updated by [email or web address]: Miguel Parekh on 10/08/18 2:[address] Patient Name: ANNABELLA FONTENOT Admission Status: ER Accout number: [id number] Admission Date: 10-01-2018 : 1945 Admission Diagnosis:SHORTNESS OF BREATH Attending: RUTHANN CAMPBELL Current LOS: 3 Anticipated DC Date: Planned Disposition: Home Primary Insurance: MEDICARE A & B Discharge Planning Comments: CM MET WITH PT IN ROOM TO DISCUSS DISCHARGE PLANNING AND NEEDS. PT DENIES DISCHARGE NEEDS. PT REPORTS HE DOES HAVE SMALL BOTTLES OF OXYGEN AT HOME WELL HIS OXYGEN MACHINE, BUT HE DOES NOT USE THE BOTTLES. PT REPORTS HAVING NO ONE TO PICK HIM UP TODAY AND WANTS MEDICAID TRANSPORT TO TAKE HIM HOME. PT ASSURES CM HE CAN WALK TO GET ON AND OFF THE BUS, HAS KEYS TO GET INTO HIS HOME ONCE HE IS THERE. IMPORTANT MESSAGE FROM MEDICARE PROVIDED AND EXPLAINED. CM RECEIVED OXYGEN TESTING, PT 92% AT REST, BEDSIDE NURSE ADVISED PT DOES NOT NEED PORTABLE OXYGEN FOR TRANSPORT HOME. CM CALLED AND NOTIFY [facility] OF DISCHARGE HOME AT [phone]. CM CALLED MEDICAID TRANSPORT, , SCHEDULED LOAN SECRETARY FOR 3PM TODAY; CONFIRMATION #[id number]. PT PLANS TO DISCHARGE HOME ALONE WITH CAREGIVER SERVICES AND HOME HEALTH RESUMPTION. MEDICAID BUS TO TRANSPORT AT DISCHARGE, LOAN SECRETARY AT 3PM TODAY. CM TO FAX ORDER AND DISCHARGE INFORMATION TO [facility] OFFICE AT [phone] Automobile Repossessor: Miguel Parekh Appended by Miguel Parekh on 10/08/2018 15:42 CDT: CM SPOKE TO PT AND INFORMED OF BUS TRANSPORT FOR 3PM. PT AWARE AND ASKED IF HE CAN HAVE HOME HEALTH TO ASSIST WITH MEDICATION MANAGEMENT. PT REPORTS HE TOOK HIS MEDICATION TO THE PHARMACY IN [place] FOR HELP AND HE KEEPS GETTING THEM "MESSED UP." CM PROVIDED PT WITH LISTING FOR HOME HEALTH AGENCIES. PT WANTS [facility] OUT OF [employer] HE USED THEM IN THE PAST. CHOICE SIGNED. CM CALLED RENAL NURSE MARGUERITE, OBTAINED ORDER FOR HOME HEALTH. CM CALLED ILA OF [employer] [place] OFFICE AT [phone], WHO WILL CONTACT DR. REGALADO FOR HOME HEALTH ORDERS, IT MAY BE TOMORROW OR FOR ADMIT. CM NOTIFIED PT WHO IS IN AGREEMENT WITH PLAN. CM FAXED REFERRAL AND DISCHARGE INFORMATION TO [facility] AT [phone]. MIGUEL PAREKH, CASE MANAGEMENT DCPIA - Discharge Planning Initial Assessment Updated by [id number]: Miguel Parekh on 10/08/18 12:36 pm * Is the patient Alert and Oriented? Yes * How many steps to enter\\exit or inside your home? NONE/ RAMP * PCP BERENICE PATELDEN * Pharmacy [facility] * Preadmission Environment Home Alone * ADLs Independent * Equipment BIPAP Cane Oxygen Walker Wheelchair * Other Equipment HOME AND PORTABLE OXYGEN UNKNOWN [employer] * List name and contact numbers for known caregivers / representatives who currently or will assist patient after discharge: MISTI ACOSTA, DTR, ANNABELLA FONTENOT, SON, [place] [phone] * Verbal permission to speak to the caregivers and representatives has been obtained from the patient. Yes * Community resources currently utilized Other Private Duty Care * Please name any agencies selected above. OUTPATIENT WOUND CARE AT [facility] ON [facility]ERSON[facility]ARE, 5 DAYS PER WEEK, 8AM TO 6PM * Additional services required to return to the preadmission environment? No * Can the patient safely return to the preadmission environment? Yes * Has this patient been hospitalized within the prior 30 days at any hospital? No Coverage Notice Reviewer: [id number] - Miguel Parekh Notice Issued Date-Time: 10/04/2018 9:20 Notice Type: Patient Choice Letter Notice Delivered To: Patient Relationship to Patient: Independent Producer Name: Delivery Method: HAND - Hand Delivered Morelia Days: Prior Verbal Notification: Recipient Understood Notice: Yes Recipient Signature: Yes Med Rec Note Co-signed by Attending: Coverage Notice Comment: [facility] Reviewer: [id number] Woody Rivera Abdi Notice Issued Date-Time: 10/08/2018 12:20 Notice Type: IM Discharge Notice Notice Delivered To: Patient Relationship to Patient: Independent Producer Name: Delivery Method: HAND - Hand Delivered Morelia Days: Prior Verbal Notification: Recipient Understood Notice: Yes Recipient Signature: Yes Med Rec Note Co-signed by Attending: Coverage Notice Comment: Last DP export: 10/08/18 2:41 p Patient Name: ANNABELLA FONTENOT Page 30142 at 1549 All edits/amendments must be made on the electronic document DICTATION DATE: 10/08/18 1549 C JAVA DEVELOPER: ARIAN 10/08/18 1549 RPT#: [id number] DC DATE: STATUS: ADM IN [facility] [address] [place] [address] END OF REPORT
--- NOTE | 2018-10-08 15:56 | MORECARE ---
CASE MANAGEMENT DISCHARGE SUMMARY PATIENT: ANNABELLA FONTENOT UNIT: [id number] ADM DATE: 10/01/18 AGE: 73 : [birth year] SEX: M ROOM/BED: D.2104 AUTHOR: BRYSON,DOC PHYSICIAN: REFERRING PHYSICIAN: RUTHANN CAMPBELL MD DATE OF SERVICE: 10/08/18 Discharge Plan Patient Name: ANNABELLA FONTENOT Facility: [facility]:[place] : 1945 Planned Disposition: Home with Home Health Anticipated Discharge Date: 10/08/18 Discharge Date: Expected LOS: 7 Initial Reviewer: [id number] Initial Review Date: 10/01/2018 Generated: 10/08/18 4:56 pm Comments DCP- Discharge Planning Updated by [email or web address]: Miguel Parekh on 10/08/18 2:[address] Patient Name: ANNABELLA FONTENOT Admission Status: ER Accout number: [id number] Admission Date: 10-01-2018 : 1945 Admission Diagnosis:SHORTNESS OF BREATH Attending: RUTHANN CAMPBELL Current LOS: 3 Anticipated DC Date: Planned Disposition: Home Primary Insurance: MEDICARE A & B Discharge Planning Comments: CM MET WITH PT IN ROOM TO DISCUSS DISCHARGE PLANNING AND NEEDS. PT DENIES DISCHARGE NEEDS. PT REPORTS HE DOES HAVE SMALL BOTTLES OF OXYGEN AT HOME WELL HIS OXYGEN MACHINE, BUT HE DOES NOT USE THE BOTTLES. PT REPORTS HAVING NO ONE TO PICK HIM UP TODAY AND WANTS MEDICAID TRANSPORT TO TAKE HIM HOME. PT ASSURES CM HE CAN WALK TO GET ON AND OFF THE BUS, HAS KEYS TO GET INTO HIS HOME ONCE HE IS THERE. IMPORTANT MESSAGE FROM MEDICARE PROVIDED AND EXPLAINED. CM RECEIVED OXYGEN TESTING, PT 92% AT REST, BEDSIDE NURSE ADVISED PT DOES NOT NEED PORTABLE OXYGEN FOR TRANSPORT HOME. CM CALLED AND NOTIFY [facility] OF DISCHARGE HOME AT [phone]. CM CALLED MEDICAID TRANSPORT, , SCHEDULED STENCIL MACHINE OPERATOR FOR 3PM TODAY; CONFIRMATION #[id number]. PT PLANS TO DISCHARGE HOME ALONE WITH CAREGIVER SERVICES AND HOME HEALTH RESUMPTION. MEDICAID BUS TO TRANSPORT AT DISCHARGE, STENCIL MACHINE OPERATOR AT 3PM TODAY. CM TO FAX ORDER AND DISCHARGE INFORMATION TO [facility] OFFICE AT [phone] Terrazzo Grinder: Miguel Parekh Appended by Miguel Parekh on 10/08/2018 15:42 CDT: CM SPOKE TO PT AND INFORMED OF BUS TRANSPORT FOR 3PM. PT AWARE AND ASKED IF HE CAN HAVE HOME HEALTH TO ASSIST WITH MEDICATION MANAGEMENT. PT REPORTS HE TOOK HIS MEDICATION TO THE PHARMACY IN [place] FOR HELP AND HE KEEPS GETTING THEM "MESSED UP." CM PROVIDED PT WITH LISTING FOR HOME HEALTH AGENCIES. PT WANTS [facility] OUT OF [employer] HE USED THEM IN THE PAST. CHOICE SIGNED. CM CALLED RENAL NURSE MARGUERITE, OBTAINED ORDER FOR HOME HEALTH. [facility] AT [phone], WHO WILL CONTACT DR. REGALADO FOR HOME HEALTH ORDERS, IT MAY BE TOMORROW OR FOR ADMIT. CM NOTIFIED PT WHO IS IN AGREEMENT WITH PLAN. CM FAXED REFERRAL AND DISCHARGE INFORMATION TO [facility] AT [phone]. MIGUEL PAREKH, CASE MANAGEMENT DCPIA - Discharge Planning Initial Assessment Updated by [email or web address]: Miguel Parekh on 10/08/18 12:36 pm * Is the patient Alert and Oriented? Yes * How many steps to enter\\exit or inside your home? NONE/ RAMP * PCP BERENICE PATELDEN * Pharmacy [facility] * Preadmission Environment Home Alone * ADLs Independent * Equipment BIPAP Cane Oxygen Walker Wheelchair * Other Equipment HOME AND PORTABLE OXYGEN UNKNOWN [employer] * List name and contact numbers for known caregivers / representatives who currently or will assist patient after discharge: MISTI ACOSTA, DTR, ANNABELLA FONTENOT, SON, [place] [phone] * Verbal permission to speak to the caregivers and representatives has been obtained from the patient. Yes * Community resources currently utilized Other Private Duty Care * Please name any agencies selected above. OUTPATIENT WOUND CARE AT [facility] ON [facility] PERSONAL CARE, 5 DAYS PER WEEK, 8AM TO 6PM * Additional services required to return to the preadmission environment? No * Can the patient safely return to the preadmission environment? Yes * Has this patient been hospitalized within the prior 30 days at any hospital? No External Providers [facility] Next Contact Date: 10/08/2018 Service Request Date: Service Type: Resolution: Reviewer: Comments: Coverage Notice Reviewer: [id number] Woody Parekh Notice Issued Date-Time: 10/04/2018 9:20 Notice Type: Patient Choice Letter Notice Delivered To: Patient Relationship to Patient: Outboard Technician Name: Delivery Method: HAND - Hand Delivered Morelia Days: Prior Verbal Notification: Recipient Understood Notice: Yes Recipient Signature: Yes Med Rec Note Co-signed by Attending: Coverage Notice Comment: [facility] Reviewer: [id number] Woody Parekh Notice Issued Date-Time: 10/08/2018 12:20 Notice Type: IM Discharge Notice Notice Delivered To: Patient Relationship to Patient: Outboard Technician Name: Delivery Method: HAND - Hand Delivered Morelia Days: Prior Verbal Notification: Recipient Understood Notice: Yes Recipient Signature: Yes Med Rec Note Co-signed by Attending: Coverage Notice Comment: Last DP export: 10/08/18 2:49 p Patient Name: ANNABELLA FONTENOT Page 48725 at 1556 All edits/amendments must be made on the electronic document DICTATION DATE: 10/08/185 STOCK PREPARER: ARIAN 10/08/18 1555 RPT#: [id number] DC DATE: STATUS: ADM IN [facility] [address] [place] [address] END OF REPORT
--- NOTE | 2018-10-08 16:04 | MORECARE ---
CASE MANAGEMENT DISCHARGE SUMMARY PATIENT: ANNABELLA FONTENOT UNIT: [id number] ADM DATE: 10/01/18 AGE: 73 : [birth year] SEX: M ROOM/BED: D.2104 AUTHOR: BRYSON,DOC PHYSICIAN: REFERRING PHYSICIAN: RUTHANN CAMPBELL MD DATE OF SERVICE: 10/08/18 Discharge Plan Patient Name: ANNABELLA FONTENOT Facility: [facility]:[place] : 1945 Planned Disposition: Home with Home Health Anticipated Discharge Date: 10/08/18 Discharge Date: Expected LOS: 7 Initial Reviewer: [id number] Initial Review Date: 10/01/2018 Generated: 10/08/18 5:04 pm Comments DCP- Discharge Planning Updated by [id number]: Miguel Parekh on 10/08/18 2:[address] Patient Name: ANNABELLA FONTENOT Admission Status: ER Accout number: [id number] Admission Date: 10-01-2018 : 1945 Admission Diagnosis:SHORTNESS OF BREATH Attending: RUTHANN CAMPBELL Current LOS: 3 Anticipated DC Date: Planned Disposition: Home Primary Insurance: MEDICARE A & B Discharge Planning Comments: CM MET WITH PT IN ROOM TO DISCUSS DISCHARGE PLANNING AND NEEDS. PT DENIES DISCHARGE NEEDS. PT REPORTS HE DOES HAVE SMALL BOTTLES OF OXYGEN AT HOME WELL HIS OXYGEN MACHINE, BUT HE DOES NOT USE THE BOTTLES. PT REPORTS HAVING NO ONE TO PICK HIM UP TODAY AND WANTS MEDICAID TRANSPORT TO TAKE HIM HOME. PT ASSURES CM HE CAN WALK TO GET ON AND OFF THE BUS, HAS KEYS TO GET INTO HIS HOME ONCE HE IS THERE. IMPORTANT MESSAGE FROM MEDICARE PROVIDED AND EXPLAINED. CM RECEIVED OXYGEN TESTING, PT 92% AT REST, BEDSIDE NURSE ADVISED PT DOES NOT NEED PORTABLE OXYGEN FOR TRANSPORT HOME. CM CALLED AND NOTIFY [facility] OF DISCHARGE HOME AT [phone]. CM CALLED MEDICAID TRANSPORT, , SCHEDULED TOP BOTTOM ATTACHING MACHINE OPERATOR FOR 3PM TODAY; CONFIRMATION #[id number]. PT PLANS TO DISCHARGE HOME ALONE WITH CAREGIVER SERVICES AND HOME HEALTH RESUMPTION. MEDICAID BUS TO TRANSPORT AT DISCHARGE, TOP BOTTOM ATTACHING MACHINE OPERATOR AT 3PM TODAY. CM TO FAX ORDER AND DISCHARGE INFORMATION TO [facility] OFFICE AT [phone] Regional Medical Director: Miguel Parekh Appended by Miguel Parekh on 10/08/2018 15:42 CDT: CM SPOKE TO PT AND INFORMED OF BUS TRANSPORT FOR 3PM. PT AWARE AND ASKED IF HE CAN HAVE HOME HEALTH TO ASSIST WITH MEDICATION MANAGEMENT. PT REPORTS HE TOOK HIS MEDICATION TO THE PHARMACY IN [place] FOR HELP AND HE KEEPS GETTING THEM "MESSED UP." CM PROVIDED PT WITH LISTING FOR HOME HEALTH AGENCIES. PT WANTS [facility] OUT OF [employer] HE USED THEM IN THE PAST. CHOICE SIGNED. CM CALLED RENAL NURSE MARGUERITE, OBTAINED ORDER FOR HOME HEALTH. CM CALLED ILA OF [employer], [place] OFFICE AT [phone], WHO WILL CONTACT DR. REGALADO FOR HOME HEALTH ORDERS, IT MAY BE TOMORROW OR FOR ADMIT. CM NOTIFIED PT WHO IS IN AGREEMENT WITH PLAN. CM FAXED REFERRAL AND DISCHARGE INFORMATION TO [facility] AT [phone]. MIGUEL PAREKH, CASE MANAGEMENT DCPIA - Discharge Planning Initial Assessment Updated by [email or web address]: Miguel Parekh on 10/08/18 12:36 pm * Is the patient Alert and Oriented? Yes * How many steps to enter\\exit or inside your home? NONE/ RAMP * PCP BERENICE PATELDEN * Pharmacy [facility] * Preadmission Environment Home Alone * ADLs Independent * Equipment BIPAP Cane Oxygen Walker Wheelchair * Other Equipment HOME AND PORTABLE OXYGEN UNKNOWN MEDICAL EQUIPMENT COMPANY * List name and contact numbers for known caregivers / representatives who currently or will assist patient after discharge: MISTI ACOSTA, DTR, ANNABELLA FONTENOT, SON, [place] [phone] * Verbal permission to speak to the caregivers and representatives has been obtained from the patient. Yes * Community resources currently utilized Other Private Duty Care * Please name any agencies selected above. OUTPATIENT WOUND CARE AT [facility] ON [facility], 5 DAYS PER WEEK, 8AM TO 6PM * Additional services required to return to the preadmission environment? No * Can the patient safely return to the preadmission environment? Yes * Has this patient been hospitalized within the prior 30 days at any hospital? No Coverage Notice Reviewer: [id number] - Miguel Parekh Notice Issued Date-Time: 10/04/2018 9:20 Notice Type: Patient Choice Letter Notice Delivered To: Patient Relationship to Patient: Cable Television Program Director Name: Delivery Method: HAND - Hand Delivered Morelia Days: Prior Verbal Notification: Recipient Understood Notice: Yes Recipient Signature: Yes Med Rec Note Co-signed by Attending: Coverage Notice Comment: [facility] Reviewer: [id number] Woody Rivera Abdi Notice Issued Date-Time: 10/08/2018 12:20 Notice Type: IM Discharge Notice Notice Delivered To: Patient Relationship to Patient: Cable Television Program Director Name: Delivery Method: HAND - Hand Delivered Morelia Days: Prior Verbal Notification: Recipient Understood Notice: Yes Recipient Signature: Yes Med Rec Note Co-signed by Attending: Coverage Notice Comment: Last DP export: 10/08/18 2:56 p Patient Name: ANNABELLA FONTENOT Page 51368 at 1604 All edits/amendments must be made on the electronic document DICTATION DATE: 10/08/181602 PROFESSOR OF SPORT MANAGEMENT: ARIAN 10/08/18 1603 RPT#: [id number] DC DATE: STATUS: ADM IN [facility] [address] [place] [address] END OF REPORT
--- NOTE | 2018-10-08 16:29 | NUR ---
[facility] BUS NOW HERE FOR TRANSPORTATION. WHEELED PT DOWN VIA W/C AND ASSISTED INTO VEHICLE. D/C TELEMETRY AND RETURNED TO [facility]. NO FURTHER NEEDS.
--- NOTE | 2018-10-08 16:48 | MORECARE ---
CASE MANAGEMENT DISCHARGE SUMMARY PATIENT: ANNABELLA FONTENOT UNIT: [id number] ADM DATE: 10/01/18 AGE: 73 : [birth year] SEX: M ROOM/BED: D.2104 AUTHOR: BRYSON,DOC PHYSICIAN: REFERRING PHYSICIAN: RUTHANN CAMPBELL MD DATE OF SERVICE: 10/08/18 Discharge Plan Patient Name: ANNABELLA FONTENOT Facility: [facility]:[place] : 1945 Planned Disposition: Home with Home Health Anticipated Discharge Date: 10/08/18 Discharge Date: 10/08/2018 Expected LOS: 7 Initial Reviewer: [id number] Initial Review Date: 10/01/2018 Generated: 10/08/18 5:47 pm Comments DCP- Discharge Planning Updated by [id number]: Miguel Parekh on 10/08/18 3:[address] Patient Name: ANNABELLA FONTENOT Admission Status: ER Accout number: [id number] Admission Date: 10-01-2018 : 1945 Admission Diagnosis:SHORTNESS OF BREATH Attending: RUTHANN CAMPBELL Current LOS: 3 Anticipated DC Date: Planned Disposition: Home Primary Insurance: MEDICARE A & B Discharge Planning Comments: CM MET WITH PT IN ROOM TO DISCUSS DISCHARGE PLANNING AND NEEDS. PT DENIES DISCHARGE NEEDS. PT REPORTS HE DOES HAVE SMALL BOTTLES OF OXYGEN AT HOME WELL HIS OXYGEN MACHINE, BUT HE DOES NOT USE THE BOTTLES. PT REPORTS HAVING NO ONE TO PICK HIM UP TODAY AND WANTS MEDICAID TRANSPORT TO TAKE HIM HOME. PT ASSURES CM HE CAN WALK TO GET ON AND OFF THE BUS, HAS KEYS TO GET INTO HIS HOME ONCE HE IS THERE. IMPORTANT MESSAGE FROM MEDICARE PROVIDED AND EXPLAINED. CM RECEIVED OXYGEN TESTING, PT 92% AT REST, BEDSIDE NURSE ADVISED PT DOES NOT NEED PORTABLE OXYGEN FOR TRANSPORT HOME. CM CALLED AND NOTIFY [facility] OF DISCHARGE HOME AT [phone]. CM CALLED MEDICAID TRANSPORT, , SCHEDULED SAMPLE DISPLAY PREPARER FOR 3PM TODAY; CONFIRMATION #[id number]. PT PLANS TO DISCHARGE HOME ALONE WITH CAREGIVER SERVICES AND HOME HEALTH RESUMPTION. MEDICAID BUS TO TRANSPORT AT DISCHARGE, SAMPLE DISPLAY PREPARER AT 3PM TODAY. CM TO FAX ORDER AND DISCHARGE INFORMATION TO [facility] OFFICE AT [phone] Agency Service Representative: Miguel Parekh Appended by Miguel Parekh on 10/08/2018 15:42 CDT: CM SPOKE TO PT AND INFORMED OF BUS TRANSPORT FOR 3PM. PT AWARE AND ASKED IF HE CAN HAVE HOME HEALTH TO ASSIST WITH MEDICATION MANAGEMENT. PT REPORTS HE TOOK HIS MEDICATION TO THE PHARMACY IN [place] FOR HELP AND HE KEEPS GETTING THEM "MESSED UP." CM PROVIDED PT WITH LISTING FOR HOME HEALTH AGENCIES. PT WANTS [facility] OUT OF [employer] HE USED THEM IN THE PAST. CHOICE SIGNED. CM CALLED RENAL NURSE MARGUERITE, OBTAINED ORDER FOR HOME HEALTH. CM CALLED ILA OF [facility] [place] OFFICE AT [phone], WHO WILL CONTACT DR. REGALADO FOR HOME HEALTH ORDERS, IT MAY BE TOMORROW OR WEDNED FOR ADMIT. CM NOTIFIED PT WHO IS IN AGREEMENT WITH PLAN. CM FAXED REFERRAL AND DISCHARGE INFORMATION TO [employer] AT [phone]. MIGUEL PAREKH, CASE MANAGEMENT Appended by Miguel Parekh on 10/08/2018 16:43 CDT: CORRECTON: PT DID NOT REQUEST HOME HEALTH, CM DID NOT ARRANGE HOME HEALTH FOR THIS PATIENT. PT DID GO HOME ALONE VIA MEDICAID TRANSPORTATION AND DENIED FURTHER NEEDS. MIGUEL PAREKH, CASE MANAGEMENT DCPIA - Discharge Planning Initial Assessment Updated by [id number]: Miguel Parekh on 10/08/18 12:36 pm * Is the patient Alert and Oriented? Yes * How many steps to enter\\exit or inside your home? NONE/ RAMP * PCP DR. LUQUE BADEN * Pharmacy [facility] * Preadmission Environment Home Alone * ADLs Independent * Equipment BIPAP Cane Oxygen Walker Wheelchair * Other Equipment HOME AND PORTABLE OXYGEN UNKNOWN [employer]QU[employer] COMPANY * List name and contact numbers for known caregivers / representatives who currently or will assist patient after discharge: MISTI ACOSTA, DTR, ANNABELLA FONTENOT, SON, [place] [phone] * Verbal permission to speak to the caregivers and representatives has been obtained from the patient. Yes * Community resources currently utilized Other Private Duty Care * Please name any agencies selected above. OUTPATIENT WOUND CARE AT [facility] ON [facility], 5 DAYS PER WEEK, 8AM TO 6PM * Additional services required to return to the preadmission environment? No * Can the patient safely return to the preadmission environment? Yes * Has this patient been hospitalized within the prior 30 days at any hospital? No Coverage Notice Reviewer: [id number] Woody Parekh Notice Issued Date-Time: 10/08/2018 12:20 Notice Type: IM Discharge Notice Notice Delivered To: Patient Relationship to Patient: Leasing Specialist Name: Delivery Method: HAND - Hand Delivered Morelia Days: Prior Verbal Notification: Recipient Understood Notice: Yes Recipient Signature: Yes Med Rec Note Co-signed by Attending: Coverage Notice Comment: Last DP export: 10/08/18 3:04 p Patient Name: ANNABELLA FONTENOT Page 99523 at 1648 All edits/amendments must be made on the electronic document DICTATION DATE: 10/08/181646 GARMENT MANUFACTURER: ARIAN 10/08/181646 RPT#: [id number] DC DATE:10/08/18 STATUS: DIS IN [facility] [address] [place] [address] END OF REPORT
--- NOTE | 2018-10-08 16:55 | MORECARE ---
CASE MANAGEMENT DISCHARGE SUMMARY PATIENT: ANNABELLA FONTENOT UNIT: [id number] ADM DATE: 10/01/18 AGE: 73 : [birth year] SEX: M ROOM/BED: D.2104 AUTHOR: BRYSON,DOC PHYSICIAN: REFERRING PHYSICIAN: RUTHANN CAMPBELL MD DATE OF SERVICE: 10/08/18 Discharge Plan Patient Name: ANNABELLA FONTENOT Facility: [facility]:[place] : 1945 Planned Disposition: Home with Home Health Anticipated Discharge Date: 10/08/18 Discharge Date: 10/08/2018 Expected LOS: 7 Initial Reviewer: [id number] Initial Review Date: 10/01/2018 Generated: 10/08/18 5:55 pm Comments DCP- Discharge Planning Updated by [id number]: Miguel Parekh on 10/08/18 3:[address] Patient Name: ANNABELLA FONTENOT Admission Status: ER Accout number: [id number] Admission Date: 10-01-2018 : 1945 Admission Diagnosis:SHORTNESS OF BREATH Attending: RUTHANN CAMPBELL Current LOS: 3 Anticipated DC Date: Planned Disposition: Home Primary Insurance: MEDICARE A & B Discharge Planning Comments: CM MET WITH PT IN ROOM TO DISCUSS DISCHARGE PLANNING AND NEEDS. PT DENIES DISCHARGE NEEDS. PT REPORTS HE DOES HAVE SMALL BOTTLES OF OXYGEN AT HOME WELL HIS OXYGEN MACHINE, BUT HE DOES NOT USE THE BOTTLES. PT REPORTS HAVING NO ONE TO PICK HIM UP TODAY AND WANTS MEDICAID TRANSPORT TO TAKE HIM HOME. PT ASSURES CM HE CAN WALK TO GET ON AND OFF THE BUS, HAS KEYS TO GET INTO HIS HOME ONCE HE IS THERE. IMPORTANT MESSAGE FROM MEDICARE PROVIDED AND EXPLAINED. CM RECEIVED OXYGEN TESTING, PT 92% AT REST, BEDSIDE NURSE ADVISED PT DOES NOT NEED PORTABLE OXYGEN FOR TRANSPORT HOME. CM CALLED AND NOTIFY [facility] OF DISCHARGE HOME AT [phone]. CM CALLED MEDICAID TRANSPORT, , SCHEDULED MILL BEAM FITTER FOR 3PM TODAY; CONFIRMATION #[id number]. PT PLANS TO DISCHARGE HOME ALONE WITH CAREGIVER SERVICES AND HOME HEALTH RESUMPTION. MEDICAID BUS TO TRANSPORT AT DISCHARGE, MILL BEAM FITTER AT 3PM TODAY. CM TO FAX ORDER AND DISCHARGE INFORMATION TO [facility] OFFICE AT [phone] Washing Tub Operator: Miguel Parekh Appended by Miguel Parekh on 10/08/2018 15:42 CDT: CM SPOKE TO PT AND INFORMED OF BUS TRANSPORT FOR 3PM. PT AWARE AND ASKED IF HE CAN HAVE HOME HEALTH TO ASSIST WITH MEDICATION MANAGEMENT. PT REPORTS HE TOOK HIS MEDICATION TO THE PHARMACY IN [place] FOR HELP AND HE KEEPS GETTING THEM "MESSED UP." CM PROVIDED PT WITH LISTING FOR HOME HEALTH AGENCIES. PT WANTS [facility] OUT OF [employer] HE USED THEM IN THE PAST. CHOICE SIGNED. CM CALLED RENAL NURSE MARGUERITE, OBTAINED ORDER FOR HOME HEALTH. CM CALLED ILA OF [employer] [facility] [place] OFFICE AT [phone], WHO WILL CONTACT DR. REGALADO FOR HOME HEALTH ORDERS, IT MAY BE TOMORROW OR WED FOR ADMIT. CM NOTIFIED PT WHO IS IN AGREEMENT WITH PLAN. CM FAXED REFERRAL AND DISCHARGE INFORMATION TO [facility] AT [phone]. MIGUEL PAREKH, CASE MANAGEMENT Appended by Miguel Parekh on 10/08/2018 16:43 CDT: CORRECTON: PT DID NOT REQUEST HOME HEALTH, CM DID NOT ARRANGE HOME HEALTH FOR THIS PATIENT. PT DID GO HOME ALONE VIA MEDICAID TRANSPORTATION AND DENIED FURTHER NEEDS. MIGUEL PAREKH, CASE MANAGEMENT Appended by Miguel Parekh on 10/08/2018 16:53 CDT: CM CONTACTED ILA WITH [employer], INFORMED HER THAT THE REFERRAL ON THIS PATIENT HAD BEEN SENT IN ERROR, REQUESTED THE INFORMATION SENT BE SHREDED. NO FURHTER NEEDS IDENTIFIED. MIGUEL PAREKH CASE MANAGEMENT DCPIA - Discharge Planning Initial Assessment Updated by [id number]: Miguel Parekh on 10/08/18 12:36 pm * Is the patient Alert and Oriented? Yes * How many steps to enter\\exit or inside your home? NONE/ RAMP * PCP LYLY PATEL * Pharmacy [facility] * Preadmission Environment Home Alone * ADLs Independent * Equipment BIPAP Cane Oxygen Walker Wheelchair * Other Equipment HOME AND PORTABLE OXYGEN UNKNOWN [employer] * List name and contact numbers for known caregivers / representatives who currently or will assist patient after discharge: MISTI ACOSTA, DTR, ANNABELLA FONTENOT, SON, [place] [phone] * Verbal permission to speak to the caregivers and representatives has been obtained from the patient. Yes * Community resources currently utilized Other Private Duty Care * Please name any agencies selected above. OUTPATIENT WOUND CARE AT [facility] ON [facility], 5 DAYS PER WEEK, 8AM TO 6PM * Additional services required to return to the preadmission environment? No * Can the patient safely return to the preadmission environment? Yes * Has this patient been hospitalized within the prior 30 days at any hospital? No Coverage Notice Reviewer: [id number] Woody Parekh Notice Issued Date-Time: 10/08/2018 12:20 Notice Type: IM Discharge Notice Notice Delivered To: Patient Relationship to Patient: Zoo Veterinarian Name: Delivery Method: HAND - Hand Delivered Morelia Days: Prior Verbal Notification: Recipient Understood Notice: Yes Recipient Signature: Yes Med Rec Note Co-signed by Attending: Coverage Notice Comment: Last DP export: 10/08/18 3:48 p Patient Name: ANNABELLA FONTENOT Page 89201 at 1655 All edits/amendments must be made on the electronic document DICTATION DATE: 10/08/181654 PRINTED CIRCUIT BOARDS ROUTER: ARIAN 10/08/181654 RPT#: [id number] DC DATE:10/08/18 STATUS: DIS IN [facility] [address] [place] [address] END OF REPORT
--- NOTE | 2018-10-08 17:11 | MORECARE ---
CASE MANAGEMENT DISCHARGE SUMMARY PATIENT: ANNABELLA FONTENOT UNIT: [id number] ADM DATE: 10/01/18 AGE: 73 : [birth year] SEX: M ROOM/BED: D.2104 AUTHOR: BRYSON,DOC PHYSICIAN: REFERRING PHYSICIAN: RUTHANN CAMPBELL MD DATE OF SERVICE: 10/08/18 Discharge Plan Patient Name: ANNABELLA FONTENOT Facility: [facility]:[place] : 1945 Planned Disposition: Home Anticipated Discharge Date: 10/08/18 Discharge Date: 10/08/2018 Expected LOS: 7 Initial Reviewer: [email or web address] Initial Review Date: 10/01/2018 Generated: 10/08/18 6:11 pm Comments DCP- Discharge Planning Updated by [id number]: Miguel Parekh on 10/08/18 4:[address] Patient Name: ANNABELLA FONTENOT Admission Status: ER Accout number: [id number] Admission Date: 10-01-2018 : 1945 Admission Diagnosis:SHORTNESS OF BREATH Attending: RUTHANN CAMPBELL Current LOS: 3 Anticipated DC Date: Planned Disposition: Home Primary Insurance: MEDICARE A & B Discharge Planning Comments: CM MET WITH PT IN ROOM TO DISCUSS DISCHARGE PLANNING AND NEEDS. PT DENIES DISCHARGE NEEDS. PT REPORTS HE DOES HAVE SMALL BOTTLES OF OXYGEN AT HOME WELL HIS OXYGEN MACHINE, BUT HE DOES NOT USE THE BOTTLES. PT REPORTS HAVING NO ONE TO PICK HIM UP TODAY AND WANTS MEDICAID TRANSPORT TO TAKE HIM HOME. PT ASSURES CM HE CAN WALK TO GET ON AND OFF THE BUS, HAS KEYS TO GET INTO HIS HOME ONCE HE IS THERE. IMPORTANT MESSAGE FROM MEDICARE PROVIDED AND EXPLAINED. CM RECEIVED OXYGEN TESTING, PT 92% AT REST, BEDSIDE NURSE ADVISED PT DOES NOT NEED PORTABLE OXYGEN FOR TRANSPORT HOME. CM CALLED AND NOTIFY [facility] OF DISCHARGE HOME AT [phone]. CM CALLED MEDICAID TRANSPORT, , SCHEDULED FREIGHT FORWARDER FOR 3PM TODAY; CONFIRMATION #[id number]. PT PLANS TO DISCHARGE HOME ALONE WITH CAREGIVER SERVICES AND HOME HEALTH RESUMPTION. MEDICAID BUS TO TRANSPORT AT DISCHARGE, FREIGHT FORWARDER AT 3PM TODAY. CM TO FAX ORDER AND DISCHARGE INFORMATION TO [facility] OFFICE AT [phone] Stock Parts Fabricator: Miguel Parekh Appended by Miguel Parekh on 10/08/2018 15:42 CDT: CM SPOKE TO PT AND INFORMED OF BUS TRANSPORT FOR 3PM. PT AWARE AND ASKED IF HE CAN HAVE HOME HEALTH TO ASSIST WITH MEDICATION MANAGEMENT. PT REPORTS HE TOOK HIS MEDICATION TO THE PHARMACY IN [place] FOR HELP AND HE KEEPS GETTING THEM "MESSED UP." CM PROVIDED PT WITH LISTING FOR HOME HEALTH AGENCIES. PT WANTS [facility] OUT OF [employer] HE USED THEM IN THE PAST. CHOICE SIGNED. CM CALLED RENAL NURSE MARGUERITE, OBTAINED ORDER FOR HOME HEALTH. CM CALLED ILA OF [employer], [place] OFFICE AT [phone], WHO WILL CONTACT DR. REGALADO FOR HOME HEALTH ORDERS, IT MAY BE TOMORROW OR FOR ADMIT. CM NOTIFIED PT WHO IS IN AGREEMENT WITH PLAN. CM FAXED REFERRAL AND DISCHARGE INFORMATION TO [facility] AT [phone]. MIGUEL PAREKH, CASE MANAGEMENT Appended by Miguel Parekh on 10/08/2018 16:43 CDT: CORRECTON: PT DID NOT REQUEST HOME HEALTH, CM DID NOT ARRANGE HOME HEALTH FOR THIS PATIENT. PT DID GO HOME ALONE VIA MEDICAID TRANSPORTATION AND DENIED FURTHER NEEDS. MIGUEL PAREKH, CASE MANAGEMENT Appended by Miguel Parekh on 10/08/2018 16:53 CDT: CM CONTACTED ILA WITH [employer], INFORMED HER THAT THE REFERRAL ON THIS PATIENT HAD BEEN SENT IN ERROR, REQUESTED THE INFORMATION SENT BE SHREDED. NO FURTHER NEEDS IDENTIFIED. MIGUEL PAREKH, CASE MANAGEMENT DCPIA - Discharge Planning Initial Assessment Updated by [email or web address]: Miguel Parekh on 10/08/18 12:36 pm * Is the patient Alert and Oriented? Yes * How many steps to enter\\exit or inside your home? NONE/ RAMP * PCP [facility] PATEL * Pharmacy [facility] * Preadmission Environment Home Alone * ADLs Independent * Equipment BIPAP Cane Oxygen Walker Wheelchair * Other Equipment HOME AND PORTABLE OXYGEN UNKNOWN [employer] EQU[employer]MENT COMPANY * List name and contact numbers for known caregivers / representatives who currently or will assist patient after discharge: MISTI ACOSTA, DTR, ANNABELLA FONTENOT, SON, [place] [phone] * Verbal permission to speak to the caregivers and representatives has been obtained from the patient. Yes * Community resources currently utilized Other Private Duty Care * Please name any agencies selected above. OUTPATIENT WOUND CARE AT [facility] ON [facility] PERSONAL CARE, 5 DAYS PER WEEK, 8AM TO 6PM * Additional services required to return to the preadmission environment? No * Can the patient safely return to the preadmission environment? Yes * Has this patient been hospitalized within the prior 30 days at any hospital? No Coverage Notice Reviewer: [id number] Woody Parekh Notice Issued Date-Time: 10/08/2018 12:20 Notice Type: IM Discharge Notice Notice Delivered To: Patient Relationship to Patient: Flakeboard Line Tender Name: Delivery Method: HAND - Hand Delivered Morelia Days: Prior Verbal Notification: Recipient Understood Notice: Yes Recipient Signature: Yes Med Rec Note Co-signed by Attending: Coverage Notice Comment: Last DP export: 10/08/18 3:55 p Patient Name: ANNABELLA FONTENOT Page 96255 at 1711 All edits/amendments must be made on the electronic document DICTATION DATE: 10/08/181709 QUALITY ASSURANCE MONITOR FINAL: ARIAN 10/08/181709 RPT#: [id number] DC DATE:10/08/18 STATUS: DIS IN [facility] [address] [place] [address] END OF REPORT
--- NOTE | 2018-10-10 10:38 | EC ---
PATIENT:ANNABELLA FONTENOT DATE OF SERVICE: 10/01/18 SEX: M MEDICAL RECORD: [id number] DATE OF : [birth year] LOCATION:D.M2 D.210 AGE OF PATIENT: 73 ADMISSION DATE: 10/01/18 REFERRING PHYSICIAN: INTERPRETING PHYSICIAN: LYUDMILA CHIANG MD ECHOCARDIOGRAM REPORT ECHO CHARGES 4 ECHO COMPLETE Date: 10/02/18 CLINICAL DIAGNOSIS: CHF ECHOCARDIOGRAPHIC MEASUREMENTS (adult normal given) AC root (d.<3.7cm) 3.0 cm LV Septum d (<1.2 cm> 2.2 cm Valve Excursion 1.1 cm LV Septum (systole) 2.6 cm Left Atria (s.<4.0cm> 4.5 cm LVPW d(<1.2cm) 1.8 cm RV (d.<2.3cm) 2.6 cm LVPW (sytole) 2.4 cm LV diastole(<5.6CM) 4.6 cm MV E-F(>70mm/sec) cm LV systole 2.4 cm LVOT Diameter 1.7 cm MV exc.(>10mm) cm Est.ejection fraction (50-75%) % DOPPLER: LVIT cm/sec A 125 cm/sec E 83.0 cm/sec LA cm/sec RVSP 30.3 mmHg LVOT 98.0 cm/sec AOP1/2T m/s Asc. Ao 300 cm/sec RVOT 106 cm/sec RA cm/sec PA 101 cm/sec AV Gradient Peak 36.0 mmHg AV Mean 20.0 mmHg AV Area 0.5 cm MV Gradient Peak 6.9 mmHg MV Mean 2.7 mmHg MV Area cm COMMENTS: Merchandise Flow Team Leader: 1 CHIKI GONZALEZOE Corner Former: [address] Dr. Chiang TAPE# PACS Pericardial Effusion N DATE OF SERVICE: 10/02/2018 ECHOCARDIOGRAM DATE OF SERVICE: 10/02/2018 FINDINGS: 1. Left ventricular chamber size is within normal limits. Left ventricular systolic function is normal. Overall ejection fraction estimated at 55%. 2. Left atrium is enlarged at 4.5 cm. Right atrium and right ventricular ECHOCARDIOGRAM REPORT [id number] ANNABELLA FONTENOT chamber sizes are as well mildly dilated. 3. Valvular structures: Aortic valve demonstrates nofcefhk-io-bcqbem calcific aortic stenosis, valve area calculates to 0.5 cm-squared. There is a gradient of 36-mm across the valve. The remaining valvular structures have normal structure and motion. 4. Doppler interrogation elsewise reveals trace mitral regurgitation, trace tricuspid regurgitation, no other valvular insufficiency or stenosis. Pulmonary systolic pressure is estimated at 30 mmHg. 5. No evidence of pericardial effusion or left ventricular thrombus. TRANSINT:[id number] Voice Confirmation ID: [id number] DOCUMENT ID: [id number] LYUDMILA CHIANG MD at 1038 CC: [id number] DICTATION DATE: 10/03/18404 FINGER GRIP MACHINE OPERATOR: 10/03/18 041 DIS IN 10/08/18 [place] [id number] [place] [address]
== END 2018-10-08 16:30 | disposition home or self-care (01) | DRG 291 ==
LOC: D.ER 17:36 → D.EDHOLD 19:05 → D.ICU 19:05 → D.M2 19:05 → D.ICU 20:45 → D.M2 10-02 18:50
PROVIDERS: Family Medicine; Internal Medicine Nephrology; ADMIT Internal Medicine Nephrology; ATTEND Internal Medicine Nephrology
DX: I13.0 Hypertensive heart and chronic kidney disease with heart failure and stage 1 through stage 4 chronic kidney disease, or unspecified chronic kidney disease (principal); J96.22 Acute and chronic respiratory failure with hypercapnia; J18.9 Pneumonia, unspecified organism; J96.21 Acute and chronic respiratory failure with hypoxia; N17.9 Acute kidney failure, unspecified; J44.0 Chronic obstructive pulmonary disease with (acute) lower respiratory infection; J44.1 Chronic obstructive pulmonary disease with (acute) exacerbation; Z68.41 Body mass index [BMI] 40.0-44.9, adult; N18.4 Chronic kidney disease, stage 4 (severe); J98.11 Atelectasis; Z99.81 Dependence on supplemental oxygen; E11.22 Type 2 diabetes mellitus with diabetic chronic kidney disease; E11.65 Type 2 diabetes mellitus with hyperglycemia; J20.9 Acute bronchitis, unspecified; G47.33 Obstructive sleep apnea (adult) (pediatric); E87.5 Hyperkalemia; I25.10 Atherosclerotic heart disease of native coronary artery without angina pectoris; E66.01 Morbid (severe) obesity due to excess calories; I50.9 Heart failure, unspecified; E11.51 Type 2 diabetes mellitus with diabetic peripheral angiopathy without gangrene; I87.8 Other specified disorders of veins; D50.9 Iron deficiency anemia, unspecified